=== PATIENT | female | born 1945 | race Caucasian/White ===

== ENCOUNTER 2018-01-02 07:12 | Day surgery (SDC) | payer OTHER ==
[2017-11-23 14:56] VITALS: BMI 29.2
[2018-01-02] MEDS ORDERED: PROPOFOL 20 ML ONE (07:16)
[2018-01-02] MEDS ORDERED: MIDAZOLAM HCL 2 MG/2 ML SINGLE DOSE VIAL ONE (07:16)
[2018-01-02] MEDS ORDERED: LIDOCAINE HCL 2% (20ML MULTI-DOSE VIAL) NR ONE (07:18)
[2018-01-02] MEDS ORDERED: BUPIVACAINE HCL 0.25% 125 MG/50 ML VIAL ONE (07:18)
[2018-01-02] MEDS ORDERED: ceFAZolin SODIUM 1 GM VIAL ONE (08:16)
[2018-01-02] MEDS ORDERED: KETOROLAC TROMETHAMINE 30 MG/1 ML VIAL ONE (08:25)
[2018-01-02] MEDS ORDERED: DEXAMETHASONE SOD PHOSPHATE 4 MG/1 ML VIAL ONE (08:25)
[2018-01-02] MEDS ORDERED: ONDANSETRON 4 MG/2 ML VIAL ONE (08:25)
[2018-01-02 08:52] VITALS: TEMP 98.1
[2018-01-02 10:36] VITALS: BP 126/67; PULSE 59
--- NOTE | 2018-01-03 19:37 | OP ---
DATE OF OPERATION: 01/02/2018 PREOPERATIVE DIAGNOSIS: Right carpal tunnel syndrome. POSTOPERATIVE DIAGNOSIS: Right carpal tunnel syndrome. OPERATIVE PROCEDURE: Right carpal tunnel release. ANESTHESIA: Local sedation. COMPLICATIONS: None. ESTIMATED BLOOD LOSS: Minimal. INDICATION: Patient is a 72-year-old female with the above finding, indicated for operative treatment. Risks, benefits, and alternatives were discussed with patient at length, proper informed consent was obtained. PROCEDURE: After proper identification of the patient and correct operative site, patient was brought to the operating room and placed supine on the operating table, all bony prominences well padded. Sedation was given by the anesthesiologist. Local anesthesia was given 2% lidocaine. The right upper extremity was prepped and draped in the usual sterile fashion. Well-padded tourniquet was placed with a sterile prep. Esmarch bandage to exsanguinate the right upper extremity. Tourniquet inflated to 250 mmHg. Longitudinal incision made the palm. Incision was taken sharply through the skin with blunt and sharp dissection through subcutaneous tissues. Palmar fascia was . Transcarpal ligament along with the distal portion of the antebrachial fascia was divided longitudinally under direct visualization with loop magnification. This provided complete release of the median nerve of the wrist. Wound was irrigated with copious amounts of normal saline and repaired with a 5-0 Monocryl suture. Sterile dressings were applied. The patient was reversed from anesthesia and brought to the recovery room in stable condition. She tolerated the procedure well. Naseem [id number]
== END 2018-01-02 09:45 | disposition home or self-care (01) ==
LOC: FASU 07:12
PROVIDERS: ATTEND Orthopaedic Surgery Hand Surgery
PROC: 01N50ZZ Release Median Nerve, Open Approach (ICD-10-PCS; principal; 2018-01-02 08:20)
DX: G56.01 Carpal tunnel syndrome, right upper limb (principal)

== ENCOUNTER 2018-02-28 13:22 | Emergency (ER) | payer OTHER ==
[2018-02-28 13:35] VITALS: BP 160/77; PULSE 82; TEMP 98.4; BMI 30.2
--- NOTE | 2018-02-28 13:53 | PDOC ---
History of Present Illness - General Chief Complaint: Respiratory Stated Complaint: COUGH Time Seen by Provider: 02/28/18 13:37 History Source: Patient Exam Limitations: No Limitations - History of Present Illness Initial Comments: CHIEF COMPLAINT: 72 y/o afebrile female with PMH HTN, HLD, depression, parkinson's c/o continued cough x 1 week. HISTORY OF PRESENT ILLNESS: Patient was seen by Dr. Varela 2 days ago for same symptoms. He took and xray which was negative and blood work. He sent her home on abx. She states the cough has continued and is worse at night. She denies fever, sore throat, CP, SOB, abd pain, n/v/d, and all other symptoms. She does not remember the name of the antibiotics he started her on. Vital signs on arrival are within normal limits. REVIEW OF SYSTEMS: GENERAL/CONSTITUTIONAL: No fever/chills. No weakness. No weight change. HEAD, EYES, EARS, NOSE AND THROAT: No change in vision. No ear pain or discharge. No sore throat. CARDIOVASCULAR: No chest pain or shortness of breath. RESPIRATORY: +cough and wheezing. No hemoptysis. GASTROINTESTINAL: No nausea, vomiting, diarrhea or abd pain. GENITOURINARY: No dysuria, frequency, or change in urination. MUSCULOSKELETAL: No joint or muscle swelling or pain. No neck or back pain. SKIN: No rash or easy bruising. NEUROLOGIC: No headache, vertigo, loss of consciousness, or loss of sensation. PHYSICAL EXAM: GENERAL: The patient is awake, alert, and fully oriented, in no acute distress. she is well appearing, speaks in full sentences without difficulty and has an intermittent dry cough. HEAD: Normal with no signs of trauma. ENT: Pupils equal, round and reactive to light, extraocular movements intact, sclera anicteric, conjunctiva clear. Neck supple. LUNGS: Clear to auscultation bilaterally. Normal excursion. No respiratory distress or use of accessory muscles. CV: RRR, S1/S2, no MRG. Cap refill < 2 sec. ABDOMEN: Soft, non-distended, non-tender even to deep palpation, no hepatomegaly or splenomegaly, no masses. EXTREMITIES: Normal range of motion, no edema. NEUROLOGICAL: Normal speech, normal gait. CN II-XII grossly intact. SKIN: Warm, dry, normal turgor, no rashes or lesions noted. Past History - Past Medical History Allergies/Adverse Reactions: Allergies Allergy/AdvReac Type Severity Reaction Status Date / Time No Known Drug Allergies Allergy Verified 02/28/18 13:29 Home Medications: Ambulatory Orders Pramipexole Di-HCl [Mirapex] 0.5 mg PO BID 04/15/12 Amitriptyline HCl [Elavil -] 50 mg PO HS #0 tablet 04/26/12 Amlodipine Besylate [Norvasc -] 5 mg PO DAILY #0 tablet 04/26/12 Aspirin [ASA] 81 mg PO DAILY #1 tab 04/26/12 Atorvastatin Calcium [Lipitor] 10 mg PO DAILY #0 tablet 04/26/12 Citalopram Hydrobromide [Celexa -] 20 mg PO DAILY #0 tablet 04/26/12 Lisinopril/Hydrochlorothiazide [Prinzide 20-12.5 mg Tablet] 1 each PO DAILY #0 tablet 04/26/12 Omeprazole [Prilosec (RX)] 20 mg PO DAILY #0 capsule. 04/26/12 Ranolazine [Ranexa -] 500 mg PO BID #0 tab 04/26/12 Rasagiline Mesylate [Azilect] 0.5 mg PO DAILY #0 tablet 04/26/12 Topiramate [Topamax] 50 mg PO BID #0 tablet 04/26/12 Gabapentin 300 mg PO HS 11/23/17 Albuterol 0.083% Nebulizer Marci [Ventolin 0.083% Nebulizer Soln -] 1 amp NEB TID #20 amp 02/28/18 Carbidopa/Levodopa 25/100 [Sinemet 25/100 -] 1 each PO TID 02/28/18 Guaifenesin AC [Robitussin AC] 10 ml PO HS #100 ml MDD 20 02/28/18 Levothyroxine [Synthroid -] 25 mcg PO DAILY 02/28/18 Prednisone [Deltasone] 40 mg PO DAILY #8 tablet 02/28/18 Anemia: No Asthma: No Cancer: No Cardiac Disorders: No CVA: No COPD: No CHF: No Dementia: No Diabetes: No GI Disorders: Yes (ACID REFLUX) Disorders: No HTN: Yes Hypercholesterolemia: Yes Liver Disease: No Seizures: No Thyroid Disease: No Other medical history: parkinsons, depression - Surgical History Abdominal Surgery: No Appendectomy: No Cardiac Surgery: No Cholecystectomy: Yes Lung Surgery: No Neurologic Surgery: No Orthopedic Surgery: Yes (RIGHT & LEFT KNEE ARTHROSCOPY) - Immunization History Immunization Up to Date: Yes - Suicide/Smoking/Psychosocial Hx Smoking History: Never smoked Hx Alcohol Use: No Drug/Substance Use Hx: No Hx Substance Use Treatment: No *Physical Exam - Vital Signs Last Vital Signs Temp Pulse Resp BP Pulse Ox 98.4 F 82 20 160/77 98 02/28/18 13:29 02/28/18 13:29 02/28/18 13:29 02/28/18 13:29 02/28/18 13:29 Medical Decision Making - Medical Decision Making A/P: 72 y/o afebrile female c/o cough x 1 week. She is on day 3 of unknown antibiotic prescribed by Dr. Varela. Lungs are clear. Vital signs are stable. Physical exam unremarkable. Labs and CXR from 02/26/18 are normal. Will discharge to home with rx for 4 day course of prednisone. Suggested she use her albuterol neb if needed every 4 hours for wheezing. Will also send rx for robitussin with codeine. The patient lives with her daughter and instructed them both to only give the cough medicine before bed because it causes drowsiness. Suggested patient f/u with Dr. Varela and return to the ER with any worsening or concerning symptoms. The patient verbalizes understanding of all instructions, has no further questions and is awaiting discharge. *DC/Admit/Observation/Transfer Diagnosis at time of Disposition: Cough - Discharge Dispostion Disposition: HOME Condition at time of disposition: Good - Prescriptions Prescriptions: Albuterol 0.083% Nebulizer Marci [Ventolin 0.083% Nebulizer Soln -] 1 amp NEB TID #20 amp Guaifenesin AC [Robitussin AC] 10 ml PO HS #100 ml MDD 20 Prednisone [Deltasone] 40 mg PO DAILY #8 tablet - Referrals Referrals: Gisela Varela MD [Primary Care Provider] - Call tomorrow - Patient Instructions Printed Discharge Instructions: DI for Cough -- Adult Additional Instructions: Discharge Instructions: -Your labs and chest xray from 02/26/18 were normal -A prescription for prednisone and cough medicine has been sent to your pharmacy -Please take the cough medicine before bed ONLY because it may cause drowsiness -Continue taking the antibiotics as prescribed by Dr. Varela -Follow up with Dr. Varela tomorrow -Return to the ER with any worsening or concerning symptoms Print Language: TUVALUAN - Post Discharge Activity
== END 2018-02-28 14:17 | disposition home or self-care (01) ==
LOC: JERFT 13:22
DX: R05 Cough (principal); I10 Essential (primary) hypertension; F32.9 Major depressive disorder, single episode, unspecified; G20 Parkinson's disease; E78.00 Pure hypercholesterolemia, unspecified
CPT/HCPCS: 99281-25

== ENCOUNTER 2018-07-14 10:59 | Emergency (ER) | payer OTHER ==
[2018-07-14 11:21] VITALS: BP 106/55; PULSE 77; TEMP 98.7; BMI 30.2
--- NOTE | 2018-07-14 11:59 | PDOC ---
History of Present Illness - General Chief Complaint: Respiratory Stated Complaint: COUGHING Time Seen by Provider: 07/14/18 11:37 History Source: Patient Exam Limitations: No Limitations - History of Present Illness Initial Comments: 07/14/18 11:57 73y F hx chf, gerd, htn, hl, parkinsons presents with complaint of cough. Pt has had cough for several weeks, but the past 3 days it has increased in frequency. It is productive of whitish/yellowish sputum. The cough seems worse at night and is associated iwth mild vega (although the pt had baseline vega). The patient endorsed a significant amount of lower extremity swelling bilatearlly last week, but resolved with lasix. There is no associated fevers or chills, chest pain, vomiting, hemopytiss, abd pain, new back pain, diarrhea, dysuria, bpr. PMD: Annabi Past History - Past Medical History Allergies/Adverse Reactions: Allergies Allergy/AdvReac Type Severity Reaction Status Date / Time No Known Drug Allergies Allergy Verified 02/28/18 13:29 Home Medications: Ambulatory Orders Pramipexole Di-HCl [Mirapex] 0.5 mg PO BID 04/15/12 Amitriptyline HCl [Elavil -] 50 mg PO HS #0 tablet 04/26/12 Amlodipine Besylate [Norvasc -] 5 mg PO DAILY #0 tablet 04/26/12 Aspirin [ASA] 81 mg PO DAILY #1 tab 04/26/12 Atorvastatin Calcium [Lipitor] 10 mg PO DAILY #0 tablet 04/26/12 Citalopram Hydrobromide [Celexa -] 20 mg PO DAILY #0 tablet 04/26/12 Lisinopril/Hydrochlorothiazide [Prinzide 20-12.5 mg Tablet] 1 each PO DAILY #0 tablet 04/26/12 Omeprazole [Prilosec (RX)] 20 mg PO DAILY #0 capsule. 04/26/12 Ranolazine [Ranexa -] 500 mg PO BID #0 tab 04/26/12 Rasagiline Mesylate [Azilect] 0.5 mg PO DAILY #0 tablet 04/26/12 Topiramate [Topamax] 50 mg PO BID #0 tablet 04/26/12 Gabapentin 300 mg PO HS 11/23/17 Albuterol 0.083% Nebulizer Marci [Ventolin 0.083% Nebulizer Soln -] 1 amp NEB TID #20 amp 02/28/18 Carbidopa/Levodopa 25/100 [Sinemet 25/100 -] 1 each PO TID 02/28/18 Guaifenesin AC [Robitussin AC] 10 ml PO HS #100 ml MDD 20 02/28/18 Levothyroxine [Synthroid -] 25 mcg PO DAILY 02/28/18 Prednisone [Deltasone] 40 mg PO DAILY #8 tablet 02/28/18 Furosemide [Lasix] 40 mg PO BID 07/14/18 Anemia: No Asthma: No Cancer: No Cardiac Disorders: No CVA: No COPD: No CHF: Yes Dementia: No Diabetes: No GI Disorders: Yes (ACID REFLUX) Disorders: No HTN: Yes Hypercholesterolemia: Yes Liver Disease: No Seizures: No Thyroid Disease: No - Surgical History Abdominal Surgery: No Appendectomy: No Cardiac Surgery: No Cholecystectomy: Yes Lung Surgery: No Neurologic Surgery: No Orthopedic Surgery: Yes (RIGHT & LEFT KNEE ARTHROSCOPY) - Immunization History Immunization Up to Date: Yes - Suicide/Smoking/Psychosocial Hx Smoking History: Never smoked Have you smoked in the past 12 months: No Information on smoking cessation initiated: No Hx Alcohol Use: No Drug/Substance Use Hx: No Hx Substance Use Treatment: No Review of Systems - Review of Systems Able to Perform ROS?: Yes Comments:: 07/14/18 12:02 Constitutional - no reported Fever, Chills, HEENT: no reported vision changes, sore throat, nasal congestion Respiratory: + cough, sob, vega no reported hemoptysis Cardiac: + leg swelling (improved) no reported chest pain, palpitations, light headedness, Abd/GI: no reported abd pain, nausea, vomiting, blood per rectum, melena, diarrhea : no reported dysuria, frequency, discharge Musculskelatal - no reported back pain, joint swelling skin - no reported bruising, erythema, rash neurological: no reported headache, numbness, focal weakness, tingling, ataxia, hematologic: no reported easy bruising, easy bleeding *Physical Exam - Vital Signs Last Vital Signs Temp Pulse Resp BP Pulse Ox 98.7 F 77 16 106/55 L 99 07/14/18 11:16 07/14/18 11:16 07/14/18 11:16 07/14/18 11:16 07/14/18 11:50 - Physical Exam Comments: 07/14/18 12:03 GENERAL: The patient is awake, alert, and fully oriented, Nontoxic - in no acute distress. HEAD: Normocephalic, atraumatic. EYES: extraocular movements intact, sclera anicteric, conjunctiva clear. ENT: Normal voice, Moist mucous membranes. NECK: Normal range of motion, supple LUNGS: Breath sounds equal, clear to auscultation bilaterally. No wheezes, no rhonchi, no rales. HEART: Regular rate and rhythm, normal S1 and S2 without murmur, rub or gallop. ABDOMEN: Soft, nontender, No guarding, no rebound. No CVA tenderness EXTREMITIES: Normal range of motion, trace edema. NEUROLOGICAL: No facial assymetry, Normal speech, PSYCH: Normal mood, normal affect. SKIN: Warm, Dry, normal turgor, Moderate Sedation - Procedure Monitoring Vital Signs: Procedure Monitoring Vital Signs Temperature 98.7 F 07/14/18 11:16 Pulse Rate 77 07/14/18 11:16 Respiratory Rate 16 07/14/18 11:16 Blood Pressure 106/55 L 07/14/18 11:16 O2 Sat by Pulse Oximetry (%) 99 07/14/18 11:50 Heart Score/ECG Review - ECG Impressions Comment:: 07/14/18 12:05 Twelve-lead EKG was performed and reviewed by me. There is normal sinus rhythm with a normal rate. Rate of [address] changes suggestive of acute ischemia ED Treatment Course - LABORATORY CBC & Chemistry Diagram: 07/14/18 12:05 07/14/18 12:05 - RADIOLOGY Radiology Studies Ordered: Category Date Time Status CHEST PA & LAT [RAD] Stat Radiology 07/14/18 11:55 Ordered Medical Decision Making - Medical Decision Making 07/14/18 12:05 73-year-old female history of multiple mental problems including CHF presenting with 3 weeks of worsening cough productive of whitish/yellowish sputum without associated fever, chills, current leg swelling. On exam patient is well-appearing, in no distress with trace pitting edema otherwise unremarkable exam Vital signs are normal Differential includes a URI/cough, CHF, pneumonia Will obtain blood work including a BNP, EKG, chest x-ray 07/14/18 13:08 labs reviewed, K noted at 3.1 will replete - may be due to her lasix use. cxr negaive for acute infiltrate suspct pts cough secondary to uri no signs of CHF will dc with pmd fu return precuations were discussed I discussed the physical exam findings, ancillary test results and final diagnoses with the patient. I answered all of the patient's questions. The patient was satisfied with the care received and felt comfortable with the discharge plan and treatment plan. The patient will call their primary care physician within 24 hours to arrange follow-up and will return to the Emergency Department with any new, persistent or worsening symptoms. *DC/Admit/Observation/Transfer Diagnosis at time of Disposition: Cough, Hypokalemia - Discharge Dispostion Disposition: HOME Condition at time of disposition: Improved Decision to Admit order: No - Referrals Referrals: Gisela Varela MD [Primary Care Provider] - - Patient Instructions Printed Discharge Instructions: DI for Cough -- Adult Additional Instructions: Return to the emergency department immediately with ANY new, persistent or worsening symptoms including any chest pain, shortness of breath, fevers or any other concerns. You MUST call and follow up with your doctor tomorrow for further evaluation of your symptoms. Results were discussed with you. Please make sure your doctor reviews the results of your emergency evaluation. If you had any xrays during your visit, it was read preliminarily by myself, a Radiologist will review it and if there are any additional findings we will call you. Print Language: DIVEHI - Post Discharge Activity
[2018-07-14 12:14] LABS: BASO % 1.2 % (0-2.0); EOS % 3.5 % (0-4.5); HEMATOCRIT 35.9 % (32.4-45.2); HEMOGLOBIN 12.4 GM/dL (10.7-15.3); LYMPH % 29.7 % (8-40); MCH 29.1 pg (25.7-33.7); MCHC 34.6 g/dl (32.0-36.0); MEAN CELL VOLUME 84.2 fl (80-96); MEAN PLT VOLUME 8.3 fl (7.5-11.1); NEUT % 51.6 % (42.8-82.8); PLATELET COUNT 159 K/MM3 (134-434); RBC 4.26 M/mm3 (3.60-5.2)
[2018-07-14 12:42] LABS: ALBUMIN 3.6 g/dl (3.4-5.0); ALK PHOS 74 U/L (45-117); ANION GAP 7 MMOL/L (8-16); BILIRUBIN,TOTAL 0.5 mg/dL (0.2-1); BLOOD UREA NITROGEN 20 mg/dL (7-18); CHLORIDE 105 mmol/L (98-107); CO2 30 mmol/L (21-32); CREATININE 0.7 mg/dL (0.55-1.3); GLUCOSE,RANDOM 98 mg/dL (74-106); POTASSIUM 3.1 mmol/L (3.5-5.1); SGOT/AST 20 U/L (15-37); SGPT/ALT 11 U/L (13-61); SODIUM 142 mmol/L (136-145)
[2018-07-14 12:49] LABS: N-TERMINAL BNP 104.3 pg/ml (5-450)
[2018-07-14] MEDS ORDERED: POTASSIUM CHLORIDE ORAL LIQUID 20 MEQ/15 ML PO ONE (13:09)
[2018-07-14] MEDS ORDERED: guaiFENesin/CODEINE 10 ML UNIT-DOSE CUPS PO ONE (13:14)
[2018-07-14] MEDS ORDERED: POTASSIUM CHLORIDE ORAL LIQUID 20 MEQ/15 ML ONE (13:14)
[2018-07-14] MEDS ORDERED: guaiFENesin/CODEINE 5 ML UNIT-DOSE CUPS PO ONE (13:22)
--- NOTE | 2018-07-15 11:00 | EKG ---
Test Reason : Blood Pressure : / mmHG Vent. Rate : 068 BPM Atrial Rate : 068 BPM P-R Int : 198 ms QRS Dur : 100 ms QT Int : 418 ms P-R-T Axes : 059 -14 074 degrees QTc Int : 444 ms NORMAL SINUS RHYTHM NORMAL ECG WHEN COMPARED WITH ECG OF 24-APR-2012 13:34, NO SIGNIFICANT CHANGE WAS FOUND Confirmed by MILTON LYNCH MD ([id number]) on 07/15/2018 10:59:53 AM Referred By: Confirmed By:MILTON LYNCH MD
== END 2018-07-14 13:27 | disposition home or self-care (01) ==
LOC: JER 10:59
DX: J06.9 Acute upper respiratory infection, unspecified (principal); R05 Cough; I11.0 Hypertensive heart disease with heart failure; I50.9 Heart failure, unspecified; E78.5 Hyperlipidemia, unspecified; K21.9 Gastro-esophageal reflux disease without esophagitis; G20 Parkinson's disease
CPT/HCPCS: 36415; 71046-TC-FY; 80053; 82550; 82553; 83880; 84484; 85025; 93005; 93010; 99283-25

== ENCOUNTER 2019-02-13 13:59 | Inpatient (IN) | payer OTHER ==
--- NOTE | 2019-02-13 14:48 | PDOC ---
Rapid Medical Evaluation Time Seen by Provider: 02/13/19 14:43 Medical Evaluation: Allergies Allergy/AdvReac Type Severity Reaction Status Date / Time No Known Drug Allergies Allergy Verified 02/28/18 13:29 02/13/19 14:43 recent visit to [facility] returned 5 days ago, c/o epigastric pain, nausea, excessive sleepiness. seen by pcp (Gisela Varela) two days. daughter belives that patient tooks extra doses of her medication while she was visiting [facility]. patient send by PCP for evaluation. PMHX: hypertension, diabetes, parkinson, angina Pe: patient alert ox3 P: labs xray EKG Discharge Disposition - Diagnosis Weakness, Chest pain at rest - Referrals - Patient Instructions - Post Discharge Activity
[2019-02-13 14:51] VITALS: BMI 29.9
[2019-02-13 15:21] LABS: BASO % 0.7 % (0-2.0); EOS % 0.9 % (0-4.5); HEMATOCRIT 43.8 % (32.4-45.2); HEMOGLOBIN 14.7 GM/dL (10.7-15.3); LYMPH % 29.6 % (8-40); MCH 27.9 pg (25.7-33.7); MCHC 33.7 g/dl (32.0-36.0); MONO % 8.9 % (3.8-10.2); NEUT % 59.9 % (42.8-82.8); PLATELET COUNT 303 K/MM3 (134-434); RBC 5.28 M/mm3 (3.60-5.2); WHITE BLOOD COUNT 7.4 K/mm3 (4.0-10.0)
--- NOTE | 2019-02-13 15:31 | PDOC ---
History of Present Illness - General Chief Complaint: Nausea/Vomiting Stated Complaint: VOMITING/ WEAKNESS Time Seen by Provider: 02/13/19 14:43 - History of Present Illness Initial Comments: 02/13/19 16:21 HPI: 73 y/o M with pmh CHF, HTN, GERD, HL, Parkinsons presenting with 4 days of drowsiness and epigastric pain since returning from [facility]. Daughter at bedside states that her mother does not appear at her normal baseline; appears drowsy and spends most of her time sleeping and frequently has been falling asleep at the dinner table or during family events. Patient reports pain is in epigastric region with radiation to the chest, described as pressure sensation. Pain is not alleviated by anything. Pain does not have any exacerbating factors. Pain is constant but intermittently worsens and is 10/10. She also reports SOB that is nonexertional and does not know if its just due to her pain. Denies heartburn Patient denies fever, chills, JOHNSON, vision change, palpitations, cough, leg swelling, vomiting, diarrhea, constipation, dysuria, hematuria, BPR, weakness, sensory changes. PMHx: as noted above ROS: as noted SHx: Denies tobacco use; no alcohol use; no rec drugs Allergies: NKDA Past History - Past Medical History Allergies/Adverse Reactions: Allergies Allergy/AdvReac Type Severity Reaction Status Date / Time No Known Drug Allergies Allergy Verified 02/13/19 14:51 Home Medications: Ambulatory Orders Pramipexole Di-HCl [Mirapex] 0.5 mg PO BID 04/15/12 Amitriptyline HCl [Elavil -] 50 mg PO HS #0 tablet 04/26/12 Amlodipine Besylate [Norvasc -] 5 mg PO DAILY #0 tablet 04/26/12 Aspirin [ASA] 81 mg PO DAILY #1 tab 04/26/12 Atorvastatin Calcium [Lipitor] 10 mg PO DAILY #0 tablet 04/26/12 Citalopram Hydrobromide [Celexa -] 20 mg PO DAILY #0 tablet 04/26/12 Lisinopril/Hydrochlorothiazide [Prinzide 20-12.5 mg Tablet] 1 each PO DAILY #0 tablet 04/26/12 Omeprazole [Prilosec (RX)] 20 mg PO DAILY #0 capsule. 04/26/12 Ranolazine [Ranexa -] 500 mg PO BID #0 tab 04/26/12 Rasagiline Mesylate [Azilect] 0.5 mg PO DAILY #0 tablet 04/26/12 Topiramate [Topamax] 50 mg PO BID #0 tablet 04/26/12 Gabapentin 300 mg PO HS 11/23/17 Albuterol 0.083% Nebulizer Marci [Ventolin 0.083% Nebulizer Soln -] 1 amp NEB TID #20 amp 02/28/18 Carbidopa/Levodopa 25/100 [Sinemet 25/100 -] 1 each PO TID 02/28/18 Guaifenesin AC [Robitussin AC] 10 ml PO HS #100 ml MDD 20 02/28/18 Levothyroxine [Synthroid -] 25 mcg PO DAILY 02/28/18 Prednisone [Deltasone] 40 mg PO DAILY #8 tablet 02/28/18 Furosemide [Lasix] 40 mg PO BID 07/14/18 Guaifenesin AC [Robitussin AC] 10 ml PO HS PRN #100 ud MDD 10 07/14/18 Anemia: No Asthma: No Cancer: No Cardiac Disorders: No CVA: No COPD: No CHF: Yes Dementia: No Diabetes: No GI Disorders: Yes (ACID REFLUX) Disorders: No HTN: Yes Hypercholesterolemia: Yes Liver Disease: No Seizures: No Thyroid Disease: No - Surgical History Abdominal Surgery: No Appendectomy: No Cardiac Surgery: No Cholecystectomy: Yes Lung Surgery: No Neurologic Surgery: No Orthopedic Surgery: Yes (RIGHT & LEFT KNEE ARTHROSCOPY) - Immunization History Immunization Up to Date: No - Suicide/Smoking/Psychosocial Hx Smoking History: Never smoked Have you smoked in the past 12 months: No Information on smoking cessation initiated: No Hx Alcohol Use: No Drug/Substance Use Hx: No Hx Substance Use Treatment: No Review of Systems - Review of Systems Comments:: 02/13/19 17:58 GENERAL/CONSTITUTIONAL: No fever or chills. HEAD, EYES, EARS, NOSE AND THROAT: No change in vision. No ear pain or discharge. No sore throat. CARDIOVASCULAR: +chest pain and shortness of breath RESPIRATORY: No cough, wheezing, or hemoptysis. GASTROINTESTINAL: +nausea; no vomiting, diarrhea or constipation. GENITOURINARY: No dysuria, frequency, or change in urination. MUSCULOSKELETAL: No joint or muscle swelling or pain. No neck or back pain. SKIN: No rash NEUROLOGIC: No headache, vertigo, loss of consciousness, or change in strength/ sensation. ENDOCRINE: No increased thirst. No abnormal weight change HEMATOLOGIC/LYMPHATIC: No anemia, easy bleeding, or history of blood clots. ALLERGIC/IMMUNOLOGIC: No hives or skin allergy. *Physical Exam - Vital Signs Last Vital Signs Temp Pulse Resp BP Pulse Ox 99.3 F 93 H 22 H 131/74 97 02/13/19 14:46 02/13/19 14:46 02/13/19 14:46 02/13/19 14:46 02/13/19 14:46 - Physical Exam Comments: 02/13/19 18:03 GENERAL: Awake, alert, and fully oriented, no acute distress HEAD: No signs of trauma, normocephalic, atraumatic EYES: EOMI, sclera anicteric, conjunctiva clear ENT: Auricles normal inspection, hearing grossly normal, nares patent, oropharynx clear without exudates. Moist mucosa NECK: Normal ROM, no lymphadenopathy LUNGS: No increased work of breathing, symmetrical chest rise, clear to auscultation bilaterally, no wheezes, crackles or rhonchi HEART: Regular rate and rhythm, normal S1 and S2, no murmurs, peripheral pulses 2+ and equal bilaterally. ABDOMEN: Soft, mild epigastric tenderness, nondistended, normoactive bowel sounds. No guarding, no rebound. No masses EXTREMITIES : Normal inspection, Normal range of motion, no edema. No clubbing or cyanosis. NEUROLOGICAL: Cranial nerves II through XII grossly intact. Normal speech, normal gait, no focal sensorimotor deficits SKIN: Warm, Dry, normal turgor, no rashes or lesions noted ED Treatment Course - LABORATORY CBC & Chemistry Diagram: 02/13/19 15:00 02/13/19 15:00 - ADDITIONAL ORDERS Additional order review: Laboratory Results 02/13/19 15:00 WBC 7.4 RBC 5.28 H Hgb 14.7 Hct 43.8 D MCV 83.0 MCH 27.9 MCHC 33.7 RDW 15.0 Plt Count 303 D MPV 8.0 Absolute Neuts (auto) 4.5 Neutrophils % 59.9 Lymphocytes % 29.6 Monocytes % 8.9 Eosinophils % 0.9 Basophils % 0.7 Nucleated RBC % 0 02/13/19 15:00 RBC 5.28 H MCV 83.0 MCHC 33.7 RDW 15.0 MPV 8.0 Neutrophils % 59.9 Lymphocytes % 29.6 Monocytes % 8.9 Eosinophils % 0.9 Basophils % 0.7 Medical Decision Making - Medical Decision Making 02/13/19 18:04 73 y/o M with pmh CHF, HTN, GERD, HL, Parkinsons presenting with 4 days of drowsiness and epigastric pain since returning from [facility] associated with nausea. Vitals wnl. PE notable only for mild abdominal tenderness. Will evaluate for cardiac dysarrythmias. ACS, hypoglycemia, electrolyte abnml, metabolic and toxic derangements, acid-base disturbances, infection. -EKG, CXR -CBC, CMP, lipase, TSH, T4, VBG -IVF, maalox, pepcid 02/13/19 18:49 -Endorsed and will be admitted under Dr Varela -Dr Snider with psychiatry consulted for assessment of possible amitryptiline overdose as well as for further assessment of possible depression/suicidal ideation; will assess patient in the morning; recommended calling poison control -Dr Walter with neurology consulted in setting of recently increasing her sinimet dosing to see patient in the AM -Poison control consulted with recommendations for observation *DC/Admit/Observation/Transfer Diagnosis at time of Disposition: Weakness, Chest pain at rest Abdominal pain Qualifiers: Abdominal location: epigastric Qualified Code(s): R10.13 - Epigastric pain Accidental medication overdose Qualifiers: Encounter type: initial encounter Qualified Code(s): T50.901A - Poisoning by unspecified drugs, medicaments and biological substances, accidental ( unintentional), initial encounter - Discharge Dispostion Condition at time of disposition: Stable Decision to Admit order: Yes - Referrals Referrals: Gisela Varela MD [Primary Care Provider] - - Patient Instructions - Post Discharge Activity
[2019-02-13 15:49] LABS: PROTHROMBIN TIME (PATIENT) 11.8 SEC (9.7-13.0)
[2019-02-13 15:58] LABS: ALBUMIN 3.7 g/dl (3.4-5.0); ALK PHOS 81 U/L (45-117); ANION GAP 6 MMOL/L (8-16); BILIRUBIN,TOTAL 0.8 mg/dL (0.2-1); BLOOD UREA NITROGEN 26.6 mg/dL (7-18); CALCIUM 9.9 mg/dL (8.5-10.1); CHLORIDE 98 mmol/L (98-107); CO2 33 mmol/L (21-32); CREATININE 1.1 mg/dL (0.55-1.3); GLUCOSE,RANDOM 132 mg/dL (74-106); MAGNESIUM 2.3 mg/dL (1.8-2.4); POTASSIUM 3.8 mmol/L (3.5-5.1); SGOT/AST 21 U/L (15-37); SGPT/ALT 26 U/L (13-61); SODIUM 137 mmol/L (136-145); TOT PROT 7.4 g/dl (6.4-8.2)
[2019-02-13] MEDS ORDERED: FAMOTIDINE 20 MG/50 ML IVPB 20 MG/50 ML MG IVPB ONE ×2 (16:12→16:24)
[2019-02-13] MEDS ORDERED: SODIUM CHLORIDE 500 ML IV STA (16:12)
[2019-02-13] MEDS ORDERED: MAG HYDROX/AL HYDROX/SIMETH 30 ML UNIT-DOSE CUP PO ONE (16:12)
[2019-02-13] MEDS ORDERED: MAG HYDROX/AL HYDROX/SIMETH 30 ML UNIT-DOSE CUP ONE (16:24)
[2019-02-13 17:20] LABS: LIPASE 86 U/L (73-393); N-TERMINAL BNP 28.3 pg/ml (5-450)
[2019-02-13 17:53] LABS: VENOUS PC02 43.5 mmHg (38-52); VENOUS PH 7.43 (7.31-7.41); VENOUS PO2 60.5 mmHg (28-48)
--- NOTE | 2019-02-13 18:31 | PDOC ---
Documentation entered by Nadya Noyola SCRIBE, acting as scribe for Mary Nunez DO. Mary Nunez DO: This documentation has been prepared by the Jazmín davis Brenda, SCRIBE, under my direction and personally reviewed by me in its entirety. I confirm that the documentation accurately reflects all work, treatment, procedures, and medical decision making performed by me. Attending Attestation - Resident Resident Name: Minnie Duran - ED Attending Attestation I have performed the following: I have examined & evaluated the patient, The case was reviewed & discussed with the resident, I agree w/resident's findings & plan, Exceptions are as noted - HPI HPI: 02/13/19 18:35 The patient is a 73 year old female, with a significant PMH of CHF, HTN, GERD, HL and Parkinson's disease, who presents to the emergency department with 4 days of drowsiness and epigastric pain. As per daughter on the bedside, the patient has been wrongly taking her medications, taking more than she should on Sunday and Sunday . As per daughter, mother has returned from [facility] approximately 5 days ago, but denies any exposure to mosquitoes As per daughter , she began to regulate her medications again yesterday (Sunday02/12/19). The daughter also states that this morning the patient was experiencing nausea and slight emesis of phlegm. The daughter also notes some shortness of breath when the patient feels tired. The patient denies chest pain, headache and dizziness. Denies fever, chills, diarrhea and constipation. Denies dysuria, frequency, urgency and hematuria. Allergies: NKA Social history: Denies tobacco use, alcohol use or illciit drug use. PCP: [facility] Neu[facility]ist: Dr. Garcia - Physicial Exam PE: 02/13/19 18:35 GENERAL: (+) Lethargic. (+) Sleepy. Awake, alert, and fully oriented, in no acute distress HEAD: No signs of trauma EYES: sclera anicteric, conjunctiva clear NECK: Normal ROM, supple, no lymphadenopathy, JVD, or masses LUNGS: Breath sounds equal, clear to auscultation bilaterally. No wheezes, and no crackles HEART: Regular rate and rhythm, normal S1 and S2, no murmurs, rubs or gallops ABDOMEN: Soft, nontender, normoactive bowel sounds. No guarding, no rebound. No masses EXTREMITIES: (+) Stiffness at bilateral ankles. no edema. No clubbing or cyanosis. No cords, erythema, or tenderness NEUROLOGICAL: Cranial nerves II through XII grossly intact. SKIN: Warm, Dry, normal turgor, no rashes or lesions noted. - Medical Decision Making 02/13/19 18:20 I, Dr. Mary Nunez, DO, attest that this document has been prepared under my direction and personally reviewed by me in its entirety. I further attest, that it accurately reflects all work, treatment, procedures and medical decision -making performed by me. a/p: 73yo female with hx of depression, parkinsons, and htn who has increased lethargy -accidentally taking extra doses of meds - ? confusion ?forgetting she took her doses, ?worsening dementia, ? drug toxicity causing lethargy -started while away - denies abx, infections, bug bites -no christopher, neck pain -lethargic at night, also taking extra gabapentin, extra sinemet, extra amitryptyline -will discuss with poison control, will check labs, ekg -pt will need admission for delirium/lethargy and correction of medication dosing -discussed with the daughter at the bedside -will monitor in the ED 02/13/19 18:30 labs reviewed will add on tsh, asa, apap pt will need admission will consult dr. snider, dr. garcia her neurologist 02/13/19 18:31 pt also with epigastric pain, suspect gerd, labs reviewed, improved with gi cocktail 02/13/19 18:38 resident discussed the case with poison control and with [facility] covering Dr. Varela who accepts pt to service resident discussed the case with Dr. Snider who will see patient in consult Heart Score/ECG Review - ECG Intrepretation Comment:: 02/13/19 18:30 sinus at 92, lvh, L de leon axis, qrs 98, qtc 450, no acute st/t wave findings
--- NOTE | 2019-02-13 19:17 | PDOC ---
*Physical Exam - Vital Signs Last Vital Signs Temp Pulse Resp BP Pulse Ox 99.3 F 93 H 22 H 131/74 97 02/13/19 14:46 02/13/19 14:46 02/13/19 14:46 02/13/19 14:46 02/13/19 14:46 - Physical Exam Comments: Pt was signed out to me by resident Dr. Duran, who explained the presentation , ED course, any pending results, and needed interventions. Pending results include observation, and pending check-in from Poison Control Center. Pt is currently stable and is lying comfortably. 02/13/19 19:16 ED Treatment Course - LABORATORY CBC & Chemistry Diagram: 02/13/19 15:00 02/13/19 15:00 - ADDITIONAL ORDERS Additional order review: Laboratory Results 02/13/19 02/13/19 02/13/19 17:15 15:00 15:00 PT with INR 11.80 INR 1.00 VBG pH 7.43 H POC VBG pCO2 43.5 POC VBG pO2 60.5 H VBG HCO3 28.3 VBG O2 Sat (Keven) 90.2 H VBG Base Excess 3.9 H Sodium 137 Potassium 3.8 Chloride 98 Carbon Dioxide 33 H Anion Gap 6 L BUN 26.6 H Creatinine 1.1 Est GFR (CKD-EPI)AfAm 56.87 Est GFR (CKD-EPI)NonAf 49.07 Random Glucose 132 H Calcium 9.9 Magnesium 2.3 Total Bilirubin 0.8 AST 21 ALT 26 Alkaline Phosphatase 81 Creatine Kinase 78 Troponin I < 0.02 B-Natriuretic Peptide 28.3 Total Protein 7.4 Albumin 3.7 Lipase 86 TSH 0.97 02/13/19 15:00 RBC 5.28 H MCV 83.0 MCHC 33.7 RDW 15.0 MPV 8.0 Neutrophils % 59.9 Lymphocytes % 29.6 Monocytes % 8.9 Eosinophils % 0.9 Basophils % 0.7 - Medications Given in the ED: ED Medications Discontinued Medications Generic Name Dose Route Start Last Admin Trade Name Freq PRN Reason Stop Dose Admin Al Hydroxide/Mg Hydroxide 30 ml 02/13/19 16:12 02/13/19 16:43 Mylanta Oral Suspension - PO 02/13/19 16:13 30 ml ONCE ONE Administration Famotidine/Sodium Chloride 20 mg in 50 mls @ 100 mls/hr 02/13/19 16:12 16:44 Pepcid 20 Mg Premixed Ivpb - IVPB 02/13/19 16:41 100 mls/hr ONCE ONE Administration Sodium Chloride 500 mls @ 500 mls/hr 02/13/19 16:12 02/13/19 16:44 Normal Saline - IV 02/13/19 17:11 500 mls/hr ASDIR STA Administration *DC/Admit/Observation/Transfer Diagnosis at time of Disposition: Weakness, Chest pain at rest Abdominal pain Qualifiers: Abdominal location: epigastric Qualified Code(s): R10.13 - Epigastric pain Accidental medication overdose Qualifiers: Encounter type: initial encounter Qualified Code(s): T50.901A - Poisoning by unspecified drugs, medicaments and biological substances, accidental ( unintentional), initial encounter - Discharge Dispostion Condition at time of disposition: Stable - Referrals - Patient Instructions - Post Discharge Activity
--- NOTE | 2019-02-13 21:06 | HP ---
CHIEF COMPLAINT: increased lethargy and weakness PCP:Dr. Varela HISTORY OF PRESENT ILLNESS: This is a 73 year old mainly Portuguese speaking female with past medical history of congestive heart failure,hypertension, hypothyroidism, diabetes mellitus, hyperlipidemia and Parkinson's Disease who presents to ER with her daughter for symptoms of increased lethargy and weakness ongoing for the past several weeks. Daughter at bedside reports she is experiencing abdominal pain with nausea and vomiting. Daughter reports she notices when she is eating she falls asleep and when sitting in a chair also finds her falling asleep. She report she was in [facility] for one month and for two weeks there family has reported she has been lethargic and weak. Daughter reports she feels that she has been taking her medications but feels she has been overdosing on several of her medications as reported with amitripltyline, pramipexole, imdur, and atorvastatin.She denied chest pain, shortness of breath, dizziness, syncopy or confusion. Daughter reports mentation is at her baseline. She denies suicidal ideations or depression. Upon evaluation in the ER labs notable for a normal creatinine, LFT's, hemoglobin, hematocrit, TSH and within normal limits of salicylates and acetaminophen levels. Poison Control was consulted by the ER and recommended observation. She is being admitted to the Medical Service for further Neurological and Psychiatric evaluation. Recent Travel: yes PAST MEDICAL HISTORY: congestive heart failure hypertension diabetes mellitus hyperlipidemia Parkinson's Disease PAST SURGICAL HISTORY: denies Social History: Smoking:denies Alcohol:denies Drugs: denies Family History: noncontributory Allergies No Known Drug Allergies Allergy (Verified 02/13/19 14:51) HOME MEDICATIONS: Home Medications Medication Instructions Recorded Pramipexole Di-HCl [Mirapex] 0.5 mg PO BID 04/15/12 Amitriptyline HCl [Elavil -] 50 mg PO HS #0 tablet 04/26/12 Amlodipine Besylate [Norvasc -] 5 mg PO DAILY #0 tablet 04/26/12 Aspirin [ASA] 81 mg PO DAILY #1 tab 04/26/12 Atorvastatin Calcium [Lipitor] 10 mg PO DAILY #0 tablet 04/26/12 Citalopram Hydrobromide [Celexa -] 20 mg PO DAILY #0 tablet 04/26/12 Lisinopril/Hydrochlorothiazide 1 each PO DAILY #0 tablet 04/26/12 [Prinzide 20-12.5 mg Tablet] Omeprazole [Prilosec (RX)] 20 mg PO DAILY #0 capsule.dr 04/26/12 Ranolazine [Ranexa -] 500 mg PO BID #0 tab 04/26/12 Rasagiline Mesylate [Azilect] 0.5 mg PO DAILY #0 tablet 04/26/12 Topiramate [Topamax] 50 mg PO BID #0 tablet 04/26/12 Gabapentin 300 mg PO HS 11/23/17 Albuterol 0.083% Nebulizer Marci 1 amp NEB TID #20 amp 02/28/18 [Ventolin 0.083% Nebulizer Soln -] Carbidopa/Levodopa [Sinemet 1 each PO TID 02/28/18 25 -] Guaifenesin AC [Robitussin AC] 10 ml PO HS #100 ml MDD 20 02/28/18 Levothyroxine [Synthroid -] 25 mcg PO DAILY 02/28/18 Prednisone [Deltasone] 40 mg PO DAILY #8 tablet 02/28/18 Furosemide [Lasix] 40 mg PO BID 07/14/18 Guaifenesin AC [Robitussin AC] 10 ml PO HS PRN #100 ud MDD 10 07/14/18 Isosorbide Mononitrate [Imdur -] 30 mg PO DAILY 02/13/19 Montelukast Sodium [Singulair] 10 mg PO DAILY 02/13/19 Pantoprazole Sodium [Protonix -] 40 mg PO DAILY 02/13/19 REVIEW OF SYSTEMS CONSTITUTIONAL: Absent: fever, chills, diaphoresis, generalized weakness, malaise, loss of appetite, weight change HEENT: Absent: rhinorrhea, nasal congestion, throat pain, throat swelling, difficulty swallowing, mouth swelling, ear pain, eye pain, visual changes CARDIOVASCULAR: Absent: chest pain, syncope, palpitations, irregular heart rate, lightheadedness , peripheral edema RESPIRATORY: Absent: cough, shortness of breath, dyspnea with exertion, orthopnea, wheezing, stridor, hemoptysis GASTROINTESTINAL: Absent: abdominal pain, abdominal distension, nausea, vomiting, diarrhea, constipation, melena, hematochezia GENITOURINARY: Absent: dysuria, frequency, urgency, hesitancy, hematuria, flank pain, genital pain MUSCULOSKELETAL: Absent: myalgia, arthralgia, joint swelling, back pain, neck pain SKIN: Absent: rash, itching, pallor HEMATOLOGIC/IMMUNOLOGIC: Absent: easy bleeding, easy bruising, lymphadenopathy, frequent infections ENDOCRINE: Absent: unexplained weight gain, unexplained weight loss, heat intolerance, cold intolerance NEUROLOGIC: Absent: headache, focal weakness or paresthesias, dizziness, unsteady gait, seizure, mental status changes, bladder or bowel incontinence PSYCHIATRIC: Absent: anxiety, depression, suicidal or homicidal ideation, hallucinations. PHYSICAL EXAMINATION Vital Signs - 24 hr 02/13/19 02/13/19 14:46 20:14 Temperature 99.3 F Pulse Rate 93 H Pulse Rate [ 65 Right Radial] Respiratory 22 H 16 Rate Blood Pressure 131/74 Blood Pressure 128/53 L [Left Arm] O2 Sat by Pulse 97 96 Oximetry (%) GENERAL: awake, alert, and fully oriented no acute distress HEAD: normal EYES: pupils equal round and reactive to light extraocular movements intact EARS, NOSE, THROAT: ears normal nares patent, oropharynx clear without exudates NECK: normal range of motion LUNGS: breath sounds equal and clear to auscultation bilaterally no wheezes, and no crackles no accessory muscle use HEART: regular rate and rhythm normal S1 and S2 ABDOMEN: soft nontender not distended, normoactive bowel sounds MUSCULOSKELETAL: normal range of motion at all joints. no bony deformities or tenderness no CVA tenderness UPPER EXTREMITIES: 2+ pulses, warm well-perfused no cyanosis no clubbing no peripheral edema LOWER EXTREMITIES: 2+ pulses, warm, well-perfused. No calf tenderness. No peripheral edema. NEUROLOGICAL: normal speech no facial grimace no facial droop PSYCHIATRIC: cooperative good eye contact denies suicidal ideations or depression SKIN: warm dry normal turgor no rashes or lesions noted normal capillary refill. Laboratory Results - last 24 hr 02/13/19 02/13/19 02/13/19 15:00 15:00 15:00 WBC 7.4 RBC 5.28 H Hgb 14.7 Hct 43.8 D MCV 83.0 MCH 27.9 MCHC 33.7 RDW 15.0 Plt Count 303 D MPV 8.0 Absolute Neuts (auto) 4.5 Neutrophils % 59.9 Lymphocytes % 29.6 Monocytes % 8.9 Eosinophils % 0.9 Basophils % 0.7 Nucleated RBC % 0 PT with INR 11.80 INR 1.00 VBG pH POC VBG pCO2 POC VBG pO2 VBG HCO3 VBG O2 Sat (Keven) VBG Base Excess Sodium 137 Potassium 3.8 Chloride 98 Carbon Dioxide 33 H Anion Gap 6 L BUN 26.6 H Creatinine 1.1 Est GFR (CKD-EPI)AfAm 56.87 Est GFR (CKD-EPI)NonAf 49.07 Random Glucose 132 H Calcium 9.9 Magnesium 2.3 Total Bilirubin 0.8 AST 21 ALT 26 Alkaline Phosphatase 81 Creatine Kinase 78 Troponin I < 0.02 B-Natriuretic Peptide 28.3 Total Protein 7.4 Albumin 3.7 Lipase 86 TSH 0.97 Salicylates Acetaminophen 02/13/19 02/13/19 02/13/19 17:15 18:49 18:49 WBC RBC Hgb Hct MCV MCH MCHC RDW Plt Count MPV Absolute Neuts (auto) Neutrophils % Lymphocytes % Monocytes % Eosinophils % Basophils % Nucleated RBC % PT with INR INR VBG pH 7.43 H POC VBG pCO2 43.5 POC VBG pO2 60.5 H VBG HCO3 28.3 VBG O2 Sat (Keven) 90.2 H VBG Base Excess 3.9 H Sodium Potassium Chloride Carbon Dioxide Anion Gap BUN Creatinine Est GFR (CKD-EPI)AfAm Est GFR (CKD-EPI)NonAf Random Glucose Calcium Magnesium Total Bilirubin AST ALT Alkaline Phosphatase Creatine Kinase Troponin I B-Natriuretic Peptide Total Protein Albumin Lipase TSH Salicylates < 1.7 L Acetaminophen <2.0 ASSESSMENT/PLAN: 73 year old mainly Portuguese speaking female with past medical history of congestive heart failure,hypertension, hypothyroidism, diabetes mellitus, hyperlipidemia and Parkinson's Disease who presents with symptoms of increased lethargy and weakness ongoing for the past several weeks associated with abdominal pain,nausea and vomiting. Daughter reported she felt that she has been taking her medications but felt she has been overdosing on amitripltyline, pramipexole, imdur, and atorvastatin. #1 Lethargy/Delirium with Abdominal Pain/ N/V (? Medication/Drug Overdose) Workup with normal creatinine and LFT's, aetaminophen and salicylates WNL, hemodynamically stable. CT scan of head without contrast ordered and pending Neurology- Dr. Walter consulted Psychiatry- Dr. Snider consulted All meds on hold for now until further evaluation #2 Diabetes Mellitus Accucheks before meals and at bedtime -Novolin insulin as per sliding scale #3 Hypertension Controlled, no evidence of hypotension -off antihypertensive meds for now #4 Hyperlipdemia -statin therapy on hold for now, LFT's normal #5 Congestive Heart Failure no acute exacerbation, BNP normal #6 Hypothyroidism TSH normal all meds on hold for now FEN NPO, IVF NS @ 75cc/hr DVT SCD's, TEDS, will hold on lovenox as pending CT scan of head Visit type - Emergency Visit Emergency Visit: Yes ED Registration Date: 02/13/19 Care time: The patient presented to the Emergency Department on the above date and was hospitalized for further evaluation of their emergent condition. - New Patient This patient is new to me today: Yes Date on this admission: 02/14/19 - Critical Care Critical Care patient: No
[2019-02-13] MEDS: SODIUM CHLORIDE 1,000 ML IV SCH (21:11)
[2019-02-14] MEDS: INSULIN SLIDING SCALE (NOVOLOG) 1 VIAL SQ SCH ×2 (06:26→17:14)
[2019-02-14 08:22] LABS: HEMATOCRIT 39.6 % (32.4-45.2); HEMOGLOBIN 13.1 GM/dL (10.7-15.3); MCH 27.8 pg (25.7-33.7); MCHC 33.1 g/dl (32.0-36.0); MEAN PLT VOLUME 8.4 fl (7.5-11.1); PLATELET COUNT 235 K/MM3 (134-434); RBC 4.72 M/mm3 (3.60-5.2); RDW 15.1 % (11.6-15.6); WHITE BLOOD COUNT 7.7 K/mm3 (4.0-10.0)
[2019-02-14 08:51] LABS: ALBUMIN 3.1 g/dl (3.4-5.0); ALK PHOS 61 U/L (45-117); ANION GAP 5 MMOL/L (8-16); BILIRUBIN,TOTAL 0.8 mg/dL (0.2-1); BLOOD UREA NITROGEN 20.4 mg/dL (7-18); CALCIUM 8.5 mg/dL (8.5-10.1); CHLORIDE 103 mmol/L (98-107); CO2 33 mmol/L (21-32); CREATININE 0.7 mg/dL (0.55-1.3); GLUCOSE,RANDOM 122 mg/dL (74-106); POTASSIUM 3.8 mmol/L (3.5-5.1); SGOT/AST 20 U/L (15-37); SGPT/ALT 29 U/L (13-61); SODIUM 142 mmol/L (136-145); TOT PROT 6.1 g/dl (6.4-8.2)
--- NOTE | 2019-02-14 11:40 | EKG ---
Test Reason : Blood Pressure : / mmHG Vent. Rate : 057 BPM Atrial Rate : 057 BPM P-R Int : 182 ms QRS Dur : 100 ms QT Int : 456 ms P-R-T Axes : 004 -20 070 degrees QTc Int : 443 ms SINUS BRADYCARDIA MINIMAL VOLTAGE CRITERIA FOR LVH, MAY BE NORMAL VARIANT NONSPECIFIC ST ABNORMALITY WHEN COMPARED WITH ECG OF 14-JUL-2018 12:01, NO SIGNIFICANT CHANGE WAS FOUND Confirmed by STANFORD MATHIS, JUAN ([id number]) on 02/14/2019 11:40:41 AM Referred By: Confirmed By:JUAN COYNE MD
--- NOTE | 2019-02-14 13:30 | CON.PULM ---
Consult Consult Specialty:: PULMONARY Referred by:: NIURKA Reason for Consultation:: HYPOXEMIA - History of Present Illness Chief Complaint: LETHARGIC History of Present Illness: The patient is a 73 year old female, with a significant PMH of CHF, HTN, GERD, HL and Parkinson's disease, who presents to the emergency department with 4 days of drowsiness and epigastric pain. As per daughter on the bedside, the patient has been wrongly taking her medications, taking more than she should on Sunday and Sunday . As per daughter, mother has returned from [facility] approximately 5 days ago, but denies any exposure to mosquitoes As per daughter , she began to regulate her medications again yesterday (Sunday02/12/19). The daughter also states that this morning the patient was experiencing nausea and slight emesis of phlegm. The daughter also notes some shortness of breath when the patient feels tired. 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 Cardio/Vascular: No: AFIB Pulmonary: No: Asthma, COPD, O2 Dependent, Pneumonia Gastrointestinal: No: Cancer Hepatobiliary: No: Cirrhosis Renal/: No: Renal Failure ...: No Heme/Onc: No: Anemia Psych: No: Addictions - Alcohol/Substance Use Hx Alcohol Use: No - Smoking History Smoking history: Never smoked Have you smoked in the past 12 months: No - Social History ADL: Family Assistance Place of : Other History of Recent Travel: Yes Home Medications - Allergies Allergies/Adverse Reactions: Allergies Allergy/AdvReac Type Severity Reaction Status Date / Time No Known Drug Allergies Allergy Verified 02/13/19 14:51 - Home Medications Home Medications: Ambulatory Orders Pramipexole Di-HCl [Mirapex] 0.5 mg PO BID 04/15/12 Amitriptyline HCl [Elavil -] 50 mg PO HS #0 tablet 04/26/12 Amlodipine Besylate [Norvasc -] 5 mg PO DAILY #0 tablet 04/26/12 Aspirin [ASA] 81 mg PO DAILY #1 tab 04/26/12 Atorvastatin Calcium [Lipitor] 10 mg PO DAILY #0 tablet 04/26/12 Citalopram Hydrobromide [Celexa -] 20 mg PO DAILY #0 tablet 04/26/12 Lisinopril/Hydrochlorothiazide [Prinzide 20-12.5 mg Tablet] 1 each PO DAILY #0 tablet 04/26/12 Omeprazole [Prilosec (RX)] 20 mg PO DAILY #0 capsule. 04/26/12 Ranolazine [Ranexa -] 500 mg PO BID #0 tab 04/26/12 Rasagiline Mesylate [Azilect] 0.5 mg PO DAILY #0 tablet 04/26/12 Topiramate [Topamax] 50 mg PO BID #0 tablet 04/26/12 Gabapentin 300 mg PO HS 11/23/17 Albuterol 0.083% Nebulizer Marci [Ventolin 0.083% Nebulizer Soln -] 1 amp NEB TID #20 amp 02/28/18 Carbidopa/Levodopa 25/100 [Sinemet 25/100 -] 1 each PO TID 02/28/18 Guaifenesin AC [Robitussin AC] 10 ml PO HS #100 ml MDD 20 02/28/18 Levothyroxine [Synthroid -] 25 mcg PO DAILY 02/28/18 Prednisone [Deltasone] 40 mg PO DAILY #8 tablet 02/28/18 Furosemide [Lasix] 40 mg PO BID 07/14/18 Guaifenesin AC [Robitussin AC] 10 ml PO HS PRN #100 ud MDD 10 07/14/18 Isosorbide Mononitrate [Imdur -] 30 mg PO DAILY 02/13/19 Montelukast Sodium [Singulair] 10 mg PO DAILY 02/13/19 Pantoprazole Sodium [Protonix -] 40 mg PO DAILY 02/13/19 Family Disease History - Family Disease History Family History: Unremarkable Review of Systems - Review of Systems Constitutional: reports: Lethargy, Loss of Appetite. denies: Fever Eyes: denies: Blurred Vision HENT: denies: Difficult Swallowing Neck: denies: Decreased ROM Cardiovascular: denies: Chest Pain Respiratory: reports: SOB on Exertion. denies: Cough Gastrointestinal: reports: Abdominal Pain. denies: Diarrhea, Vomiting Genitourinary: denies: Burning Physical Exam Vital Sings: Vital Signs Temperature 99.1 F 02/14/19 08:30 Pulse Rate 60 02/14/19 08:30 Respiratory Rate 18 02/14/19 09:00 Blood Pressure 136/60 08/30/19 08:30 O2 Sat by Pulse Oximetry (%) 95 02/14/19 09:00 Constitutional: Yes: Calm Eyes: Yes: EOM Intact HENT: Yes: Normocephalic Neck: Yes: Trachea Midline Cardiovascular: Yes: Regular Rate and Rhythm Respiratory: Yes: CTA Bilaterally Gastrointestinal: Yes: Normal Bowel Sounds, Soft Edema: No Labs: CBC, BMP 02/14/19 06:54 02/14/19 06:54 Imaging - Results Chest X-ray: Report Reviewed, Image Reviewed Cat Scan: Report Reviewed, Image Reviewed Problem List - Problems (1) Hypoxemia Code(s): R09.02 - HYPOXEMIA (2) Abdominal pain Code(s): R10.9 - UNSPECIFIED ABDOMINAL PAIN Qualifiers: Abdominal location: epigastric Qualified Code(s): R10.13 - Epigastric pain (3) Accidental medication overdose Code(s): T50.901A - POISONING BY UNSP DRUG/MEDS/BIOL SUBST, ACCIDENTAL, INIT Qualifiers: Encounter type: initial encounter Qualified Code(s): T50.901A - Poisoning by unspecified drugs, medicaments and biological substances, accidental ( unintentional), initial encounter Assessment/Plan SPO2 96% ROOM AIR/NORMAL CTA CHEST/NEVER SMOKER STABLE RESPIRATORY STATUS CONTINUE CURRENT WORKUP Jonathon CANTU MD
--- NOTE | 2019-02-14 14:18 | CON.PSY ---
Psychiatry Consult Chief Complaint: 73 Anuj old female seen for Psych eval for? suicidal ideas. Patient had been depressed and had been abroad. she has been taking Elavil for DEpression and apparantly took more p8ills. Patient and [facility] that she does not have any suicidal ildera or history. Patient is alert, pleasant and smiling at 5this time. - Previous Psychiatric Treatment Outpatient: More than 6 mos ago Inpatient: Within the last 12 months - Previous Substance Abuse Treatment Outpatient: None Inpatient: None - Reason for Previous Treatment Reason for Previous Treatment: Major Depression - Current Medications Current Medications: Active Medications Sodium Chloride (Normal Saline -) 1,000 mls @ 75 mls/hr IV ASDIR IDALIA Last Admin: 02/13/19 21:11 Dose: 75 mls/hr Insulin Aspart (Novolog Vial Sliding Scale -) 1 vial SQ BIDAC IDALIA; Protocol Last Admin: 02/14/19 06:26 Dose: Not Given - Allergies Allergies: Allergies Allergy/AdvReac Type Severity Reaction Status Date / Time No Known Drug Allergies Allergy Verified 02/13/19 14:51 - Current Living Status Usual Living Arrangement: With Spouse - Current Mental Status Evaluation Appearance: Well Groomed Attitude: Cooperative - Affect Affect: Full Range - Mood Mood: Euthymic - Speech/Language Expressive: Coherent - Psychomotor Activity Psychomotor Activity: Normal - Thought Process Thought Process: Intact - Thought Content Hallucinations: Absent Delusions: Absent - Self Perception Self Perception: No Impairment - Cognition Attention: Alert Orientation: Time Memory, Immediate Recall: Intact Memory, Short Term: 2/3 Memory, Remote with Promptin/3 - Abstraction Proverb Interpretation: Intact Judgement: Intact - Insight Insight: Intact - Impulse Control Impulse Control: Good Control - Suicidal Ideation Suicidal Ideation: No - Homicidal Ideation Homicidal Ideation: No Assessment/Plan 1)patient is not suicidal. 2)may start Elavil for DEpression when medically stable.
--- NOTE | 2019-02-14 15:10 | PN ---
Progress Note, Physician Chief Complaint: Lethargy AMS Medication Overdose History of Present Illness: Previous notes and events reviewed awake and alert NAD complain of epigastric pain, denies nausea or vomiting attempt to get in touch with Poison Control Dr Chau [phone] denies chest pain or SOB - Current Medication List Current Medications: Active Medications Sodium Chloride (Normal Saline -) 1,000 mls @ 75 mls/hr IV ASDIR [facility] Last Admin: 02/13/19 21:11 Dose: 75 mls/hr Insulin Aspart (Novolog Vial Sliding Scale -) 1 vial SQ BIDAC [facility]; Protocol Last Admin: 02/14/19 06:26 Dose: Not Given - Objective Vital Signs: Vital Signs Temperature 99.1 F 02/14/19 08:30 Pulse Rate 60 02/14/19 08:30 Respiratory Rate 18 02/14/19 09:00 Blood Pressure 136/60 02/14/19 08:30 O2 Sat by Pulse Oximetry (%) 95 02/14/19 09:00 Constitutional: Yes: No Distress, Calm Eyes: Yes: Conjunctiva Clear HENT: Yes: Atraumatic Cardiovascular: Yes: Regular Rate and Rhythm Respiratory: Yes: Regular, CTA Bilaterally Gastrointestinal: Yes: Normal Bowel Sounds, Soft Musculoskeletal: Yes: Muscle Weakness Extremities: Yes: WNL Edema: No Neurological: Yes: Alert Psychiatric: Yes: Alert, Oriented (name, place, date) Labs: CBC, BMP 02/14/19 06:54 02/14/19 06:54 INR, PTT INR 1.00 (0.83-1.09) 02/13/19 15:00 Problem List - Problems (1) Abdominal pain Assessment/Plan: -Pantoprazole -clear liquid diet Code(s): R10.9 - UNSPECIFIED ABDOMINAL PAIN Qualifiers: Abdominal location: epigastric Qualified Code(s): R10.13 - Epigastric pain (2) Accidental medication overdose Assessment/Plan: -Psychiatry on board -Neurology consult -attempt to contact Poison Control Dr Chau [phone] -fall precaution -Head CT scan shows mild volume loss that is more prominent in the high convexity and mild periventricular chronic microvascular ischemic disease changes, no gross acute intracranial pathology -Acetominophen level neg -Salicylate level neg Code(s): T50.901A - POISONING BY UNSP DRUG/MEDS/BIOL SUBST, ACCIDENTAL, INIT Qualifiers: Encounter type: initial encounter Qualified Code(s): T50.901A - Poisoning by unspecified drugs, medicaments and biological substances, accidental ( unintentional), initial encounter (3) Chest pain at rest Assessment/Plan: -trop neg x 2 -Chest CTA shows no gross evidence of PE Code(s): R07.9 - CHEST PAIN, UNSPECIFIED (4) Weakness Assessment/Plan: -PT Code(s): R53.1 - WEAKNESS Assessment/Plan see problem list dvt ppx
[2019-02-14] MEDS: SODIUM CHLORIDE 1,000 ML IV SCH (17:15)
--- NOTE | 2019-02-14 17:44 | CON.NEURO ---
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 Cardio/Vascular: No: AFIB Pulmonary: No: Asthma, COPD, O2 Dependent, Pneumonia Gastrointestinal: No: Cancer Hepatobiliary: No: Cirrhosis Renal/: No: Renal Failure ...: No Psych: No: Addictions - Alcohol/Substance Use Hx Alcohol Use: No - Smoking History Smoking history: Never smoked Have you smoked in the past 12 months: No - Social History Usual Living Arrangement: With Spouse ADL: Family Assistance History of Recent Travel: Yes Home Medications - Allergies Allergies/Adverse Reactions: Allergies Allergy/AdvReac Type Severity Reaction Status Date / Time No Known Drug Allergies Allergy Verified 02/13/19 14:51 - Home Medications Home Medications: Ambulatory Orders Pramipexole Di-HCl [Mirapex] 0.5 mg PO BID 04/15/12 Amitriptyline HCl [Elavil -] 50 mg PO HS #0 tablet 04/26/12 Amlodipine Besylate [Norvasc -] 5 mg PO DAILY #0 tablet 04/26/12 Aspirin [ASA] 81 mg PO DAILY #1 tab 04/26/12 Atorvastatin Calcium [Lipitor] 10 mg PO DAILY #0 tablet 04/26/12 Citalopram Hydrobromide [Celexa -] 20 mg PO DAILY #0 tablet 04/26/12 Lisinopril/Hydrochlorothiazide [Prinzide 20-12.5 mg Tablet] 1 each PO DAILY #0 tablet 04/26/12 Omeprazole [Prilosec (RX)] 20 mg PO DAILY #0 capsule. 04/26/12 Ranolazine [Ranexa -] 500 mg PO BID #0 tab 04/26/12 Rasagiline Mesylate [Azilect] 0.5 mg PO DAILY #0 tablet 04/26/12 Topiramate [Topamax] 50 mg PO BID #0 tablet 04/26/12 Gabapentin 300 mg PO HS 11/23/17 Albuterol 0.083% Nebulizer Marci [Ventolin 0.083% Nebulizer Soln -] 1 amp NEB TID #20 amp 02/28/18 Carbidopa/Levodopa 25/100 [Sinemet 25/100 -] 1 each PO TID 02/28/18 Guaifenesin AC [Robitussin AC] 10 ml PO HS #100 ml MDD 20 02/28/18 Levothyroxine [Synthroid -] 25 mcg PO DAILY 02/28/18 Prednisone [Deltasone] 40 mg PO DAILY #8 tablet 02/28/18 Furosemide [Lasix] 40 mg PO BID 07/14/18 Guaifenesin AC [Robitussin AC] 10 ml PO HS PRN #100 ud MDD 10 07/14/18 Isosorbide Mononitrate [Imdur -] 30 mg PO DAILY 02/13/19 Montelukast Sodium [Singulair] 10 mg PO DAILY 02/13/19 Pantoprazole Sodium [Protonix -] 40 mg PO DAILY 02/13/19 Physical Exam-Neuro Vital Signs: Vital Signs Temperature 97.7 F 02/14/19 17:03 Pulse Rate 58 L 02/14/19 17:03 Respiratory Rate 20 02/14/19 17:03 Blood Pressure 116/72 02/14/19 17:03 O2 Sat by Pulse Oximetry (%) 95 02/14/19 09:00 Labs: CBC, BMP 02/14/19 06:54 02/14/19 06:54 INR, PTT INR 1.00 (0.83-1.09) 02/13/19 15:00 Assessment/Plan cc Confusion for and toxicity of medication HPI 73 year old female , history of CHF, HTN, Hypothyroidism, Parkinson disease, HTN, DM. Patient was lethargic and feeling weak, and confusion . She was taking several times over what she was suppose to take, of all the medicaiton. She came to hospital, her ct head was normal. Patient medicaiton were held and she is improved. I spoke to her adanron rshe as suppose to be on mirapex .5 mg po bid and sinemet ( 50/200) one tab po tid . She also take gabapentin 300 mg tid for neuropathy. PAST MEDICAL HISTORY: congestive heart failure hypertension diabetes mellitus hyperlipidemia Parkinson's Disease PAST SURGICAL HISTORY: denies Social History: Smoking:denies Alcohol:denies Drugs: denies Family History: noncontributory Allergies No Known Drug Allergies Allergy (Verified 02/13/19 14:51) HOME MEDICATIONS: Home Medications Medication Instructions Recorded Pramipexole Di-HCl [Mirapex] 0.5 mg PO BID 04/15/12 Amitriptyline HCl [Elavil -] 50 mg PO HS #0 tablet 04/26/12 Amlodipine Besylate [Norvasc -] 5 mg PO DAILY #0 tablet 04/26/12 Aspirin [ASA] 81 mg PO DAILY #1 tab 04/26/12 Atorvastatin Calcium [Lipitor] 10 mg PO DAILY #0 tablet 04/26/12 Citalopram Hydrobromide [Celexa -] 20 mg PO DAILY #0 tablet 04/26/12 Lisinopril/Hydrochlorothiazide 1 each PO DAILY #0 tablet 04/26/12 [Prinzide 20-12.5 mg Tablet] Omeprazole [Prilosec (RX)] 20 mg PO DAILY #0 capsule. 04/26/12 Ranolazine [Ranexa -] 500 mg PO BID #0 tab 04/26/12 Rasagiline Mesylate [Azilect] 0.5 mg PO DAILY #0 tablet 04/26/12 Topiramate [Topamax] 50 mg PO BID #0 tablet 04/26/12 Gabapentin 300 mg PO HS 11/23/17 Albuterol 0.083% Nebulizer Marci 1 amp NEB TID #20 amp 02/28/18 [Ventolin 0.083% Nebulizer Soln -] Carbidopa/Levodopa 25/100 [Sinemet 1 each PO TID 02/28/18 25/100 -] Guaifenesin AC [Robitussin AC] 10 ml PO HS #100 ml MDD 20 02/28/18 Levothyroxine [Synthroid -] 25 mcg PO DAILY 02/28/18 Prednisone [Deltasone] 40 mg PO DAILY #8 tablet 02/28/18 Furosemide [Lasix] 40 mg PO BID 07/14/18 Guaifenesin AC [Robitussin AC] 10 ml PO HS PRN #100 ud MDD 10 07/14/18 Isosorbide Mononitrate [Imdur -] 30 mg PO DAILY 02/13/19 Montelukast Sodium [Singulair] 10 mg PO DAILY 02/13/19 Pantoprazole Sodium [Protonix -] 40 mg PO DAILY 02/13/19 ROS, FH , SH reviewed in chart NEUROLOGICAL EXAMINATION Alert oriented x 3, she knows date, her name and where she is , no neck stiffness, VSS eomi, pupils reactive face is slightly masked there is no cogwheel rigidty or resting tremors identified sensation is normal motor 5/[address] head unremarkable Assessment/Plan 1. Parkinson disease for five yeras , overdose on sinemet, mirapex - restart slowly sinemet 25/ , october from February 15 , spoke to daughter , she is not stiff would hold for now - after couple days of sinemet , mirapex can be added 2. Diabetic Neuropathy - hold gabepntin for now Thanking you so much Ted Mcbride MD
[2019-02-15] MEDS: SODIUM CHLORIDE 1,000 ML IV SCH ×2 (06:44→20:29)
[2019-02-15] MEDS: INSULIN SLIDING SCALE (NOVOLOG) 1 VIAL SQ SCH ×2 (06:45→16:49)
[2019-02-15] MEDS: PANTOPRAZOLE 40 MG TABLET (FP) PO SCH (09:57)
--- NOTE | 2019-02-15 10:42 | PN ---
Progress Note, Physician - Current Medication List Current Medications: Active Medications Sodium Chloride (Normal Saline -) 1,000 mls @ 75 mls/hr IV ASDIR [facility] Last Admin: 02/15/19 06:44 Dose: 75 mls/hr Insulin Aspart (Novolog Vial Sliding Scale -) 1 vial SQ BIDAC [facility]; Protocol Last Admin: 02/15/19 06:45 Dose: Not Given Pantoprazole Sodium (Protonix -) 40 mg PO DAILY [facility] Last Admin: 02/15/19 09:57 Dose: 40 mg - Objective Vital Signs: Vital Signs Temperature 99.4 F 02/15/19 10:02 Pulse Rate 63 02/15/19 10:02 Respiratory Rate 20 02/15/19 10:02 Blood Pressure 142/61 02/15/19 10:02 O2 Sat by Pulse Oximetry (%) 98 02/14/19 20:40 Cardiovascular: Yes: Regular Rate and Rhythm Respiratory: Yes: Regular, CTA Bilaterally Gastrointestinal: Yes: Normal Bowel Sounds, Soft. No: Tenderness Edema: No Neurological: Yes: Alert, Oriented, Weakness Labs: CBC, BMP 02/14/19 06:54 02/14/19 06:54 INR, PTT INR 1.00 (0.83-1.09) 02/13/19 15:00 Assessment/Plan - Problems (1) Abdominal pain Assessment/Plan: -Pantoprazole -clear liquid diet Code(s): R10.9 - UNSPECIFIED ABDOMINAL PAIN Qualifiers: Abdominal location: epigastric Qualified Code(s): R10.13 - Epigastric pain (2) Accidental medication overdose Assessment/Plan: -Psychiatry on board -Neurology consult -attempt to contact Poison Control Dr Chau [phone] -fall precaution -Head CT scan shows mild volume loss that is more prominent in the high convexity and mild periventricular chronic microvascular ischemic disease changes, no gross acute intracranial pathology -Acetominophen level neg -Salicylate level neg Code(s): T50.901A - POISONING BY UNSP DRUG/MEDS/BIOL SUBST, ACCIDENTAL, INIT Qualifiers: Encounter type: initial encounter Qualified Code(s): T50.901A - Poisoning by unspecified drugs, medicaments and biological substances, accidental ( unintentional), initial encounter (3) Chest pain at rest Assessment/Plan: -trop neg x 2 -Chest CTA shows no gross evidence of PE Code(s): R07.9 - CHEST PAIN, UNSPECIFIED (4) Weakness Assessment/Plan: -PT Code(s): R53.1 - WEAKNESS
--- NOTE | 2019-02-15 11:35 | PN ---
Progress Note (short form) - Note Progress Note: PULMONARY Denies shortness of breath, cough or wheezing. Mental status appears to have improved. Would like diet advanced. Vital Signs Period Temp Pulse Resp BP Sys/Ag Pulse Ox Last 24 Hr 97.7 F-99.4 F 53-63 18-20 116-142/61-77 98 Gen: NAD at rest Heart: RRR Lung: decreased breath sounds at the bases Abd: soft, nontender Ext: no edema CBC, BMP 02/14/19 06:54 02/14/19 06:54 Active Medications Sodium Chloride (Normal Saline -) 1,000 mls @ 75 mls/hr IV ASDIR [facility] Last Admin: 02/15/19 06:44 Dose: 75 mls/hr Insulin Aspart (Novolog Vial Sliding Scale -) 1 vial SQ BIDAC [facility]; Protocol Last Admin: 02/15/19 06:45 Dose: Not Given Pantoprazole Sodium (Protonix -) 40 mg PO DAILY [facility] Last Admin: 02/15/19 09:57 Dose: 40 mg A/P Altered Mental Status improving CHF HTN DM Hypothyroidism Parkinsons Disease - advance diet as tolerated - O2 to keep SpO2 >90% - DVT prophylaxis
--- NOTE | 2019-02-15 18:18 | PN ---
Progress Note (short form) - Note Progress Note: 02/15/2019 @ 5:45pm Episodic Note Called by nurse patient with fever of 100.9. Chart reviewed. WBC 7.7 today. -Tylenol ordered -Check CBC, lactic acid, procalcitonin,blood cultures, UA w/culture and CXR. -ID consulted (Dr. Kimbrough) Fever workup pending. Visit type - Emergency Visit Emergency Visit: No - New Patient This patient is new to me today: No - Critical Care Critical Care patient: No
[2019-02-15] MEDS: ACETAMINOPHEN 325 MG TABLET (FP) PO PRN (18:39)
[2019-02-15 18:49] LABS: HEMATOCRIT 40.7 % (32.4-45.2); HEMOGLOBIN 13.5 GM/dL (10.7-15.3); MCH 27.7 pg (25.7-33.7); MCHC 33.2 g/dl (32.0-36.0); MEAN CELL VOLUME 83.5 fl (80-96); MEAN PLT VOLUME 8.4 fl (7.5-11.1); PLATELET COUNT 228 K/MM3 (134-434); RBC 4.87 M/mm3 (3.60-5.2); RDW 15.1 % (11.6-15.6); WHITE BLOOD COUNT 10.3 K/mm3 (4.0-10.0)
[2019-02-15 22:28] LABS: EPI CELLS 1.4 /HPF (0-5/HPF); HYALINE CASTS 1 /lpf (0-8); PH,URINE 6.5 (5.0-8.0); URINE APPEARANCE CLEAR; URINE BACTERIA 6.8 /hpf (NEGATIVE); URINE BILIRUBIN NEGATIVE (NEGATIVE); URINE COLOR YELLOW; URINE GLUCOSE (UA) NEGATIVE (NEGATIVE); URINE KETONE NEGATIVE (NEGATIVE); URINE LEUK ESTERASE TRACE (NEGATIVE); URINE NITRITE NEGATIVE (NEGATIVE); URINE PROTEIN NEGATIVE (NEGATIVE); URINE RBC 2 /hpf (0-4); URINE WBC 2 /hpf (0-5)
[2019-02-16] MEDS: SODIUM CHLORIDE 1,000 ML IV SCH (00:55)
[2019-02-16] MEDS: ACETAMINOPHEN 325 MG TABLET (FP) PO PRN (03:27)
[2019-02-16] MEDS: INSULIN SLIDING SCALE (NOVOLOG) 1 VIAL SQ SCH ×2 (06:21→17:35)
[2019-02-16 07:22] LABS: BASO % 0.6 % (0-2.0); EOS % 2.1 % (0-4.5); HEMOGLOBIN 11.8 GM/dL (10.7-15.3); LYMPH % 27.4 % (8-40); MCH 27.2 pg (25.7-33.7); MCHC 32.6 g/dl (32.0-36.0); MEAN CELL VOLUME 83.5 fl (80-96); MONO % 9.6 % (3.8-10.2); NEUT % 60.3 % (42.8-82.8); PLATELET COUNT 188 K/MM3 (134-434); RBC 4.31 M/mm3 (3.60-5.2); RDW 14.8 % (11.6-15.6); WHITE BLOOD COUNT 6.7 K/mm3 (4.0-10.0)
[2019-02-16 07:57] LABS: ALBUMIN 2.7 g/dl (3.4-5.0); BILIRUBIN,TOTAL 0.7 mg/dL (0.2-1); BLOOD UREA NITROGEN 10.6 mg/dL (7-18); CALCIUM 7.6 mg/dL (8.5-10.1); CREATININE 0.6 mg/dL (0.55-1.3); POTASSIUM 3.5 mmol/L (3.5-5.1); TOT PROT 5.7 g/dl (6.4-8.2)
--- NOTE | 2019-02-16 09:38 | EKG ---
Test Reason : Blood Pressure : / mmHG Vent. Rate : 092 BPM Atrial Rate : 092 BPM P-R Int : 176 ms QRS Dur : 098 ms QT Int : 364 ms P-R-T Axes : 027 -26 063 degrees QTc Int : 450 ms SINUS RHYTHM WITH PREMATURE ATRIAL COMPLEXES MINIMAL VOLTAGE CRITERIA FOR LVH, MAY BE NORMAL VARIANT BORDERLINE ECG WHEN COMPARED WITH ECG OF 14-JUL-2018 12:01, PREMATURE ATRIAL COMPLEXES ARE NOW PRESENT Confirmed by ISIS MATHIS, ADAL ([id number]) on 02/16/2019 9:38:28 AM Referred By: Confirmed By:ADAL MARINELLI MD
--- NOTE | 2019-02-16 09:39 | EKG ---
Test Reason : Blood Pressure : / mmHG Vent. Rate : 059 BPM Atrial Rate : 059 BPM P-R Int : 182 ms QRS Dur : 100 ms QT Int : 442 ms P-R-T Axes : 008 -16 054 degrees QTc Int : 437 ms SINUS BRADYCARDIA MINIMAL VOLTAGE CRITERIA FOR LVH, MAY BE NORMAL VARIANT BORDERLINE ECG WHEN COMPARED WITH ECG OF 14-FEB-2019 09:50, NO SIGNIFICANT CHANGE WAS FOUND Confirmed by ISIS MATHIS, ADAL ([id number]) on 02/16/2019 9:38:54 AM Referred By: Stacy FOREMAN Confirmed By:ADAL MARINELLI MD
[2019-02-16] MEDS: PANTOPRAZOLE 40 MG TABLET (FP) PO SCH (10:48)
--- NOTE | 2019-02-16 11:02 | PN ---
Progress Note, Physician - Current Medication List Current Medications: Active Medications Acetaminophen (Tylenol -) 650 mg PO Q6H PRN PRN Reason: FEVER Last Admin: 02/16/19 03:27 Dose: 650 mg Sodium Chloride (Normal Saline -) 1,000 mls @ 75 mls/hr IV ASDIR [facility] Last Admin: 02/16/19 00:55 Dose: 75 mls/hr Insulin Aspart (Novolog Vial Sliding Scale -) 1 vial SQ BIDAC [facility]; Protocol Last Admin: 02/16/19 06:21 Dose: Not Given Pantoprazole Sodium (Protonix -) 40 mg PO DAILY [facility] Last Admin: 02/16/19 10:48 Dose: 40 mg - Objective Vital Signs: Vital Signs Temperature 98 F 02/16/19 07:35 Pulse Rate 65 02/16/19 10:00 Respiratory Rate 20 02/16/19 10:00 Blood Pressure 115/65 02/16/19 10:00 O2 Sat by Pulse Oximetry (%) 98 02/15/19 20:30 Cardiovascular: Yes: Regular Rate and Rhythm Respiratory: Yes: Regular, CTA Bilaterally Gastrointestinal: Yes: Normal Bowel Sounds, Soft Labs: CBC, BMP 02/16/19 07:05 02/16/19 07:05 INR, PTT INR 1.00 (0.83-1.09) 02/13/19 15:00 Assessment/Plan - Problems (1) Abdominal pain Assessment/Plan: -Pantoprazole -clear liquid diet Code(s): R10.9 - UNSPECIFIED ABDOMINAL PAIN Qualifiers: Abdominal location: epigastric Qualified Code(s): R10.13 - Epigastric pain (2) Accidental medication overdose Assessment/Plan: -Psychiatry on board -Neurology consult -attempt to contact Poison Control Dr Chau [phone] -fall precaution -Head CT scan shows mild volume loss that is more prominent in the high convexity and mild periventricular chronic microvascular ischemic disease changes, no gross acute intracranial pathology -Acetominophen level neg -Salicylate level neg Code(s): T50.901A - POISONING BY UNSP DRUG/MEDS/BIOL SUBST, ACCIDENTAL, INIT Qualifiers: Encounter type: initial encounter Qualified Code(s): T50.901A - Poisoning by unspecified drugs, medicaments and biological substances, accidental ( unintentional), initial encounter (3) Chest pain at rest Assessment/Plan: -trop neg x 2 -Chest CTA shows no gross evidence of PE Code(s): R07.9 - CHEST PAIN, UNSPECIFIED (4) Weakness Assessment/Plan: -PT Code(s): R53.1 - WEAKNESS
--- NOTE | 2019-02-16 11:08 | PN ---
Progress Note (short form) - Note Progress Note: PULMONARY Had isolated low grade temp overnight. Denies shortness of breath, cough or wheezing. Vital Signs Period Temp Pulse Resp BP Sys/Ag Pulse Ox Last 24 Hr 98 F-100.9 F 60-72 16-20 114-133/54-65 98-99 Gen: NAD at rest Heart: RRR Lung: decreased breath sounds at the bases Abd: soft, nontender Ext: no edema CBC, BMP 02/16/19 07:05 02/16/19 07:05 Active Medications Acetaminophen (Tylenol -) 650 mg PO Q6H PRN PRN Reason: FEVER Last Admin: 02/16/19 03:27 Dose: 650 mg Sodium Chloride (Normal Saline -) 1,000 mls @ 75 mls/hr IV ASDIR [facility] Last Admin: 02/16/19 00:55 Dose: 75 mls/hr Insulin Aspart (Novolog Vial Sliding Scale -) 1 vial SQ BIDAC [facility]; Protocol Last Admin: 02/16/19 06:21 Dose: Not Given Pantoprazole Sodium (Protonix -) 40 mg PO DAILY [facility] Last Admin: 02/16/19 10:48 Dose: 40 mg A/P Altered Mental Status improving CHF HTN DM Hypothyroidism Parkinsons Disease - PO as tolerated - f/u cultures - O2 to keep SpO2 >90% - DVT prophylaxis
--- NOTE | 2019-02-16 14:22 | PN ---
Progress Note (short form) - Note Progress Note: ID CONSULT DICTATED FEVER UNCLEAR SOURCE S/P ALTERED MENTAL STATUS IMPROVED OBSERVE OFF ANTIBIOTICS DISCUSSED WITH FAMILY AT BEDSIDE
--- NOTE | 2019-02-16 18:22 | CONS ---
INFECTIOUS DISEASE CONSULTATION DATE OF CONSULTATION: DATE OF DICTATION: 02/16/2019 HISTORY: The patient is a 73-year-old female who is evaluated for fever. History was obtained from the chart as well as her son, who served as a product grader. She recently returned from a trip to [facility]. She had been home for approximately 5 days. She presented to the emergency room on February 13, 2019, with complaints of epigastric abdominal pain. Family had also reported that she was increasingly lethargic and somnolent. They were concerned that she may have been overmedicated. She presented to the emergency room where she was noted to have fever and elevated white blood cell count. Cultures were obtained. She was empirically treated with antibiotics. Her hospital course has been complicated by temperature to 100.9. At the present time, the patient is awake and alert, seated in bed eating lunch. The son, who is present at the time of the examination, reports that she has had significant improvement in her mental status and is at her baseline. At the present time, she has no complaints of pain. She denies any abdominal pain. No vomiting or diarrhea. While in [facility], she reports being well and was not ill with febrile illness. She denies any mosquito bites. No reports of rash. She denies any chest pain, shortness of breath, cough, or sputum production. No dysuria or hematuria. PAST MEDICAL HISTORY: Positive for diabetes mellitus, hypertension, hyperlipidemia, parkinsonism, coronary artery disease, congestive heart failure, gastroesophageal reflux. ALLERGIES: No known allergies. MEDICATIONS: Include Tylenol, insulin, Protonix. SOCIAL HISTORY: She lives at home with family members. She is a nonsmoker, nondrinker. SYSTEMS REVIEW: Neurologic: Positive for altered mentation. Cardiac: Negative chest pain or palpitations. Respiratory: Negative cough or sputum production. Gastrointestinal: Negative vomiting or diarrhea. Genitourinary: Negative for urinary tract infection. LABORATORY DATA: White count 6.7, hematocrit 36.0, platelet count 188, creatinine 0.6. Liver enzymes normal. Urinalysis: Trace leukemia. Chest x-ray negative for acute infiltrate. PHYSICAL EXAMINATION: General: On exam, she is awake and alert. She is seated in bed eating lunch. She is in no acute distress. Vital Signs: Maximum temperature 100.9, blood pressure 115/65, pulse 65 regular, respirations 20 per minute. HEENT: Sclerae anicteric. Heart: Sounds S1, S2. Lungs: Clear. Abdomen: Soft, nontender. Extremities: Negative for edema. Skin: No rashes noted. IMPRESSION: 1. Low-grade fever, unclear source. 2. Status post toxic metabolic encephalopathy, improved. PLAN: No clear source for infectious process at this time. We will await cultures. Observe off antibiotic therapy. Case discussed with patient's son present at the time of the examination. Thank you for the kind referral. JUAN ARENAS M.D. [id number]
[2019-02-17] MEDS: ACETAMINOPHEN 325 MG TABLET (FP) PO PRN (01:01)
[2019-02-17] MEDS: INSULIN SLIDING SCALE (NOVOLOG) 1 VIAL SQ SCH (07:09)
[2019-02-17] MEDS: PANTOPRAZOLE 40 MG TABLET (FP) PO SCH (09:57)
--- NOTE | 2019-02-17 10:32 | DS ---
Physical Examination Vital Signs: Vital Signs Temperature 98 F 02/17/19 06:24 Pulse Rate 58 L 02/17/19 06:24 Respiratory Rate 16 02/17/19 06:24 Blood Pressure 140/74 02/17/19 06:24 O2 Sat by Pulse Oximetry (%) 99 02/16/19 20:38 Cardiovascular: Yes: Regular Rate and Rhythm Respiratory: Yes: Regular, CTA Bilaterally Gastrointestinal: Yes: Normal Bowel Sounds, Soft Neurological: Yes: Alert, Oriented Labs: CBC, BMP 02/16/19 07:05 02/16/19 07:05 Discharge Summary Reason For Visit: ACCIDENTAL DRUG OVERDOSE, WEAKNESS Current Active Problems Abdominal pain (Acute) Accidental medication overdose (Acute) Chest pain at rest (Acute) Hypoxemia (Acute) Weakness (Acute) Hospital Course: - Problems (1) Abdominal pain Assessment/Plan: -Resolved -Pantoprazole -Tolerating diet Code(s): R10.9 - UNSPECIFIED ABDOMINAL PAIN Qualifiers: Abdominal location: epigastric Qualified Code(s): R10.13 - Epigastric pain (2) Accidental medication overdose Assessment/Plan: -Psychiatry on board -Neurology consult -Head CT scan shows mild volume loss that is more prominent in the high convexity and mild periventricular chronic microvascular ischemic disease changes, no gross acute intracranial pathology -Acetominophen level neg -Salicylate level neg Code(s): T50.901A - POISONING BY UNSP DRUG/MEDS/BIOL SUBST, ACCIDENTAL, INIT Qualifiers: Encounter type: initial encounter Qualified Code(s): T50.901A - Poisoning by unspecified drugs, medicaments and biological substances, accidental ( unintentional), initial encounter (3) Chest pain at rest Assessment/Plan: -trop neg x 2 -Chest CTA shows no gross evidence of PE Code(s): R07.9 - CHEST PAIN, UNSPECIFIED (4) Weakness Assessment/Plan: -PT Code(s): R53.1 - WEAKNESS Resume some meds and close follow up medication monitoring by family--d/w daughter vns Condition: Stable - Instructions Diet, Activity, Other Instructions: FOLLOW MEDICATION ORDERED DIRECTED Referrals: Gisela Varela MD [Primary Care Provider] - 1 Week Disposition: VNS/HOME HEALTH CARE - Home Medications Comprehensive Discharge Medication List: Ambulatory Orders Aspirin [ASA -] 81 mg PO DAILY #1 tab 04/26/12 Atorvastatin Calcium [Lipitor] 10 mg PO DAILY #0 tablet 04/26/12 Albuterol 0.083% Nebulizer Marci [Ventolin 0.083% Nebulizer Soln -] 1 amp NEB TID #20 amp 02/28/18 Carbidopa/Levodopa 25/100 [Sinemet 25/100 -] 1 each PO TID 02/28/18 Levothyroxine [Synthroid -] 25 mcg PO DAILY 02/28/18 Isosorbide Mononitrate [Imdur -] 30 mg PO DAILY 02/13/19 Pantoprazole Sodium [Protonix -] 40 mg PO DAILY 02/13/19
[2019-02-17 11:41] VITALS: BP 126/95; PULSE 59; TEMP 98.4
[2019-02-17] MEDS ORDERED: ALBUTEROL SO4 0.083% IH SOL 2.5 MG/3 ML VIAL.NEB. NEB SCH (14:00)
[2019-02-17] MEDS ORDERED: CARBIDOPA/LEVODOPA 25/100 TABLET (FP) PO SCH (14:00)
[2019-02-18] MEDS ORDERED: LEVOTHYROXINE NA 25 MCG TABLET (FP) PO SCH (07:00)
[2019-02-18] MEDS ORDERED: PANTOPRAZOLE 40 MG TABLET (FP) PO SCH (10:00)
[2019-02-18] MEDS ORDERED: ISOSORBIDE MONONITRATE 30 MG TAB.SR.24H (FP) PO SCH (10:00)
[2019-02-18] MEDS ORDERED: ASPIRIN 81 MG CHEWABLE TABLETS PO SCH (10:00)
[2019-02-18] MEDS ORDERED: ATORVASTATIN CA 10 MG TABLET (FP) PO SCH (22:00)
== END 2019-02-17 11:59 | disposition home health service (06) | DRG 918 ==
LOC: JER 13:59 → JERBED 18:35 → J8W 21:22
PROVIDERS: ADMIT Family Medicine; ATTEND Family Medicine
DX: T42.8X1A Poisoning by antiparkinsonism drugs and other central muscle-tone depressants, accidental (unintentional), initial encounter (principal); R41.0 Disorientation, unspecified; R53.83 Other fatigue; E78.5 Hyperlipidemia, unspecified; E03.9 Hypothyroidism, unspecified; G20 Parkinson's disease; K21.9 Gastro-esophageal reflux disease without esophagitis; R09.02 Hypoxemia; R07.89 Other chest pain; R50.9 Fever, unspecified; E11.40 Type 2 diabetes mellitus with diabetic neuropathy, unspecified; I11.0 Hypertensive heart disease with heart failure; I50.9 Heart failure, unspecified; Y92.098 Other place in other non-institutional residence as the place of occurrence of the external cause
CPT/HCPCS: 36415; 70450-TC; 71045-TC-FY; 71046-TC-FY; 71275-TC; 80053; 80307; 81003; 82308; 82550; 82803; 82962; 83605; 83690; 83735; 83880; 84439; 84443; 84484; 85025; 85027; 85610; 87040; 87086; 93005; 93010; 99284-25; J7030

== ENCOUNTER 2023-02-25 09:17 | Observation (INO) | payer OTHER ==
[2023-02-25 09:24] VITALS: BMI 30.7
[2023-02-25] MEDS ORDERED: ACETAMINOPHEN 1000 MG/100 ML BAG IVPB ONE ×2 (10:18→13:59)
[2023-02-25] MEDS ORDERED: ACETAMINOPHEN INJECTION 100 ML IVPB ONE ×2 (10:26→14:01)
[2023-02-25 10:46] LABS: BASO % 0.8 % (0-2.0); EOS % 0.3 % (0-4.5); HEMATOCRIT 41.6 % (32.4-45.2); HEMOGLOBIN 14.1 GM/dL (10.7-15.3); LYMPH % 16.3 % (8-40); MCH 27.7 pg (25.7-33.7); MCHC 33.8 g/dl (32.0-36.0); MEAN CELL VOLUME 81.9 fl (80-96); MEAN PLT VOLUME 8.4 fl (7.5-11.1); MONO % 5.8 % (3.8-10.2); NEUT % 76.8 % (42.8-82.8); PLATELET COUNT 206 10^3/uL (134-434); RBC 5.08 M/mm3 (3.60-5.2); RDW 15.1 % (11.6-15.6); WHITE BLOOD COUNT 10.9 K/mm3 (4.0-10.0)
[2023-02-25 10:49] LABS: INR 1.13 (0.83-1.09); PROTHROMBIN TIME (PATIENT) 13.1 SEC (9.7-13.0)
[2023-02-25 11:10] LABS: POTASSIUM 3.7 mmol/L (3.5-5.1)
[2023-02-25 11:12] LABS: CALCIUM 8.4 mg/dL (8.5-10.1)
[2023-02-25 11:13] LABS: ALBUMIN 3.5 g/dl (3.4-5.0); BLOOD UREA NITROGEN 13.1 mg/dL (7-18)
[2023-02-25 11:16] LABS: CREATININE 0.6 mg/dL (0.55-1.3)
[2023-02-25 11:17] LABS: TOT PROT 7.2 g/dl (6.4-8.2)
[2023-02-25 11:18] LABS: BILIRUBIN,TOTAL 0.9 mg/dL (0.2-1)
[2023-02-25] MEDS ORDERED: PIPERACILLIN/TAZOB 4.5 GM 4.5 GM in DEXTROSE 5%-WATER 100 ML IVPB ONE (14:16)
[2023-02-25] MEDS ORDERED: PIPERACILLIN/TAZOB 4.5 GM 4.5 GM/100 ML BAG IVPB ONE (14:25)
[2023-02-26] MEDS ORDERED: CEFTRIAXONE 2 GM/100 ML BAG IVPB ONE (10:35)
[2023-02-26] MEDS: CEFTRIAXONE 2 GM in DEXTROSE 5%-WATER 100 ML IVPB SCH (10:59)
[2023-02-27 10:43] LABS: BASO % 0.5 % (0-2.0); EOS % 0.5 % (0-4.5); HEMATOCRIT 40.5 % (32.4-45.2); HEMOGLOBIN 13.6 GM/dL (10.7-15.3); LYMPH % 17.6 % (8-40); MCH 27.5 pg (25.7-33.7); MCHC 33.7 g/dl (32.0-36.0); MEAN CELL VOLUME 81.5 fl (80-96); MEAN PLT VOLUME 8.5 fl (7.5-11.1); MONO % 2.7 % (3.8-10.2); NEUT % 78.7 % (42.8-82.8); PLATELET COUNT 180 10^3/uL (134-434); RBC 4.96 M/mm3 (3.60-5.2); RDW 15.1 % (11.6-15.6); WHITE BLOOD COUNT 6.7 K/mm3 (4.0-10.0)
[2023-02-27] MEDS: CEFTRIAXONE 2 GM in DEXTROSE 5%-WATER 100 ML IVPB SCH (11:06)
[2023-02-27 11:51] LABS: ALBUMIN 2.9 g/dl (3.4-5.0); BILIRUBIN,TOTAL 0.7 mg/dL (0.2-1); BLOOD UREA NITROGEN 21.4 mg/dL (7-18); CALCIUM 7.7 mg/dL (8.5-10.1); CREATININE 0.6 mg/dL (0.55-1.3); MAGNESIUM 2.4 mg/dL (1.8-2.4); TOT PROT 6.6 g/dl (6.4-8.2)
[2023-02-27] MEDS: KCL 10 MEQ IVPB 10 MEQ/100 ML INFUS.BAG IVPB SCH ×3 (12:51→17:30)
[2023-02-27 17:20] LABS: URINE COLOR DK YELLOW
[2023-02-27 17:21] LABS: PH,URINE 5.5 (5.0-8.0); URINE APPEARANCE CLEAR; URINE BILIRUBIN MODERATE (NEGATIVE); URINE GLUCOSE (UA) 100 (NEGATIVE); URINE KETONE 40 mg/dl (NEGATIVE); URINE PROTEIN 100 (NEGATIVE)
[2023-02-27 17:22] LABS: URINE LEUK ESTERASE 1+ (NEGATIVE); URINE NITRITE POSITIVE (NEGATIVE)
[2023-02-27 17:41] LABS: URINE RBC 60.5 /uL (0-23.9)
[2023-02-27] MEDS: POTASSIUM CHLORIDE ORAL LIQUID 20 MEQ/15 ML PO SCH ×2 (19:02→22:52)
[2023-02-27] MEDS: ENOXAPARIN NA (PORCINE) 40 MG/0.4 ML DISP.SYRIN SQ SCH (20:09)
[2023-02-27] MEDS: ATORVASTATIN CA 10 MG TABLET (FP) PO SCH ×2 (20:09→21:39)
[2023-02-27] MEDS: CARBIDOPA/LEVODOPA 25/100 TABLET (FP) PO SCH (21:38)
[2023-02-28] MEDS: CARBIDOPA/LEVODOPA 25/100 TABLET (FP) PO SCH ×3 (06:03→21:16)
[2023-02-28] MEDS: LEVOTHYROXINE NA 25 MCG TABLET (FP) PO SCH (06:03)
[2023-02-28] MEDS: PANTOPRAZOLE 40 MG TABLET PO SCH (09:50)
[2023-02-28] MEDS: ASPIRIN 81 MG CHEWABLE TABLETS PO SCH (09:50)
[2023-02-28] MEDS: ISOSORBIDE MONONITRATE 30 MG TAB.SR.24H (FP) PO SCH (09:50)
[2023-02-28] MEDS: ENOXAPARIN NA (PORCINE) 40 MG/0.4 ML DISP.SYRIN SQ SCH (09:50)
[2023-02-28] MEDS: POTASSIUM CHLORIDE ORAL LIQUID 20 MEQ/15 ML PO SCH ×2 (09:50→21:16)
[2023-02-28] MEDS: CEFTRIAXONE 2 GM in DEXTROSE 5%-WATER 100 ML IVPB SCH (11:12)
[2023-02-28 11:42] LABS: POTASSIUM 4.6 mmol/L (3.5-5.1)
[2023-02-28 11:46] LABS: BLOOD UREA NITROGEN 15.6 mg/dL (7-18)
[2023-02-28 11:49] LABS: CREATININE 0.7 mg/dL (0.55-1.3)
[2023-02-28 15:17] VITALS: RESP 18
[2023-02-28] MEDS: ATORVASTATIN CA 10 MG TABLET (FP) PO SCH (21:16)
[2023-03-01] MEDS: LEVOTHYROXINE NA 25 MCG TABLET (FP) PO SCH (06:05)
[2023-03-01] MEDS: CARBIDOPA/LEVODOPA 25/100 TABLET (FP) PO SCH (06:05)
[2023-03-01 09:31] VITALS: BP 165/60; PULSE 57; TEMP 99.1
[2023-03-01] MEDS: ENOXAPARIN NA (PORCINE) 40 MG/0.4 ML DISP.SYRIN SQ SCH (09:48)
[2023-03-01] MEDS: PANTOPRAZOLE 40 MG TABLET PO SCH (09:49)
[2023-03-01] MEDS: ISOSORBIDE MONONITRATE 30 MG TAB.SR.24H (FP) PO SCH (09:49)
[2023-03-01] MEDS: POTASSIUM CHLORIDE ORAL LIQUID 20 MEQ/15 ML PO SCH (09:49)
[2023-03-01] MEDS: ASPIRIN 81 MG CHEWABLE TABLETS PO SCH (09:49)
[2023-03-01] MEDS: CEFTRIAXONE 2 GM in DEXTROSE 5%-WATER 100 ML IVPB SCH (11:27)
[2023-03-01] MEDS ORDERED: metroNIDAZOLE 250 MG TABLET PO SCH (14:00)
== END 2023-03-01 13:13 | disposition home or self-care (01) ==
LOC: JER 09:17 → JERBED 15:33 → UNDOADMOB 15:33 → INTOOBSV 15:33 → JERBED 02-26 09:19 → J5S 02-26 19:43
PROVIDERS: ADMIT Family Medicine; ATTEND Family Medicine
PROC: 3E03329 Introduction of Other Anti-infective into Peripheral Vein, Percutaneous Approach (ICD-10-PCS; principal; 2023-02-26)
PROC: 3E033NZ Introduction of Analgesics, Hypnotics, Sedatives into Peripheral Vein, Percutaneous Approach (ICD-10-PCS; 2023-02-26)
PROC: 3E023GC Introduction of Other Therapeutic Substance into Muscle, Percutaneous Approach (ICD-10-PCS; 2023-02-26)
PROC: 3E033GC Introduction of Other Therapeutic Substance into Peripheral Vein, Percutaneous Approach (ICD-10-PCS; 2023-02-26)
DX: K57.92 Diverticulitis of intestine, part unspecified, without perforation or abscess without bleeding (principal); K21.9 Gastro-esophageal reflux disease without esophagitis; E78.00 Pure hypercholesterolemia, unspecified; I11.0 Hypertensive heart disease with heart failure; G20 Parkinson's disease; I50.9 Heart failure, unspecified; Z90.49 Acquired absence of other specified parts of digestive tract
CPT/HCPCS: 36415; 71045-TC-FY; 74177-TC; 74220-TC-FY; 80048; 80053; 81003; 82962; 83735; 85025; 85610; 85651; 86140; 86850; 86900; 86901; 87040; 87045; 87046; 87086; 87205; 87209; 87324; 87449; 96365; 96366; 96367; 96368; 96372; 96375; 96376; 99285-25; G0378; Q9967

== ENCOUNTER 2023-05-03 04:26 | Day surgery (SDC) | payer OTHER ==
[2023-05-01 11:12] VITALS: BMI 25.7
[2023-05-03 09:46] VITALS: RESP 16
[2023-05-03 09:49] VITALS: BP 136/53; PULSE 58; TEMP 98.2
== END 2023-05-03 10:18 | disposition home or self-care (01) ==
LOC: JASU-ENDO 04:26
PROVIDERS: ATTEND Internal Medicine Gastroenterology
PROC: 0DBC8ZX Excision of Ileocecal Valve, Via Natural or Artificial Opening Endoscopic, Diagnostic (ICD-10-PCS; principal; 2023-05-03 08:45)
DX: Z12.11 Encounter for screening for malignant neoplasm of colon (principal); D17.5 Benign lipomatous neoplasm of intra-abdominal organs; K64.8 Other hemorrhoids; K57.30 Diverticulosis of large intestine without perforation or abscess without bleeding
CPT/HCPCS: 82962; 88305-TC